=== PATIENT | female | born 1950 | race Caucasian/White ===

== ENCOUNTER 2020-02-19 08:51 | Outpatient (CLI) | payer MEDICARE, MEDICAID, SELFPAY ==
--- NOTE | 2020-02-19 09:01 | MM_ITS ---
WS: [id number] BILATERAL DIGITAL SCREENING MAMMOGRAPHY WITH CAD CLINICAL INFORMATION: SCREENING HISTORY: Screening mammogram. No current complaints. COMPARISON: TECHNIQUE: Bilateral CC and MLO views. FINDINGS: Scattered fibroglandular densities bilaterally. No suspicious focal mass, asymmetry, calcifications, or architectural distortion. No evidence of malignancy. Stable punctate and lucent centered calcifica tions. A few stable ovoid nodules right breast with long-term stability MM/[place] [id number] IMPRESSION: BI-RADS: 2-Benign FOLLOW UP: 1 Year Follow-up Recommend return to annual screening mammography.
== END 2020-02-19 08:52 | disposition home or self-care (01) ==
LOC: RADSHAW 08:57
PROVIDERS: PCP Internal Medicine; Visit Provider Internal Medicine
DX: Z12.31 Encounter for screening mammogram for malignant neoplasm of breast (principal)
CPT/HCPCS: 77067

== ENCOUNTER 2020-12-17 13:20 | Inpatient (IN) | payer MEDICARE, MEDICAID, SELFPAY ==
[2020-12-17] VITALS (8 sets, daily range): BP systolic 83–146; BP diastolic 50–78; PULSE 70–80; RESP 16–24; TEMP 36.7–37.8; O2SAT 92–95; BMI 35.2
--- NOTE | 2020-12-17 14:42 | XR_ITS ---
WS: [id number] Portable AP upright chest, 12/17/2020 Clinical Data: sob Comparison: PA and lateral chest, 01/19/2017. Findings: There is minimal bibasilar patchy opacity in both lungs. The heart is slightly enlarged. Th e aortic arch is tortuous. No nodules, masses or effusions are seen. XR/XR chest 1V portable [id number] Impression: 1. Minimal bibasilar patchy opacity may indicate pneumonia. 2. Atherosclerosis and cardiomegaly.
--- NOTE | 2020-12-17 14:49 | W.ED.COVID ---
HPI - COVID General: Chief Complaint: COVID symptoms Stated Complaint: SOB, COVID + Time Seen by Provider: 12/17/20 14:29 Source: patient, RN notes reviewed and old records reviewed Mode of arrival: EMS Limitations: no limitations Triage information: Has fever, cough or shortness of breath. Exposure to COVID + person last 14 days History of Present Illness: HPI Narrative: Patient admitted feeling unwell for about 2 weeks now with weakness, fatigue, body aches. She denies a fever. She has had exposure to someone with Covid. She went to her primary care provider's office today and she was tested for Covid and she tested positive for COVID-19. She was pretty lethargic and had an episode of altered mental status in her primary care provider's office. She was also hypotensive with blood pressure in the 80s and 90s systolic. She was then sent here to be evaluated. complaint: known COVID positive Prior covid testing: yes, results known COVID 19 common symptoms: positive fever(s), cough, dyspnea and body aches; negative headache(s), loss of sense of smell and/or taste, throat pain, nasal congestion, nausea, vomiting, diarrhea or chest tightness COVID 19 other sytmptoms: positive requiring oxygen and confusion; negative chest pressure, chest pain, pleuritic pain, requiring more oxygen, respiratory distress, cyanosis, lethargy or new neurological complaints Onset (ago): week(s) (2) Severity: slowly worsening Pertinent comorbid conditions: obesity Treatment prior to arrival: oxygen COVID Results: Nasal/Oral Coronavirus 2019 PCR Pending 12/17/20 19:44 12/17/20 Review of Systems General: Reports: 10 or more systems reviewed and unremarkable except in HPI and below Const: Reports: fever(s) and body aches ENMT: Denies: throat pain or nasal congestion Card: Denies: chest pain Resp: Reports: dyspnea GI: Denies: nausea, vomiting or diarrhea Neuro: Reports: confusion; Denies: headache(s) PFS ED PFSH: Medical History (Updated 12/17/20 @ 22:33 by Michel Dhaliwal MD, [facility] [place] Gout HTN (hypertension) Hypothyroidism Type 2 diabetes mellitus Family History (Updated 12/17/20 @ 18:03 by Kale Jamison MD) Other CAD (coronary artery disease) Cancer Diabetes Social History (Updated 12/17/20 @ 18:03 by Kale Jamison MD) Smoking and tobacco status: never smoked Alcohol intake: former Substance/Drug Use: never Marital status: Physical Exam Const: COMMON NORMALS: no acute distress, average body habitus, patient oriented x3, no limitations, healthy appearing, alert and well nourished HENMT: COMMON NORMALS: normocephalic, atraumatic and moist oral mucous membranes HEAD & SCALP: normocephalic and atraumatic Neck/C-Spine: COMMON NORMALS: no meningeal signs and no JVD Resp: COMMON NORMALS: normal respiratory effort, No retractions, No use of accessory muscles, clear to auscultation bilaterally and percussion normal AUSCULTATION: clear to auscultation bilaterally PERCUSSION: percussion normal Cardio: COMMON NORMALS: no JVD, regular rate, regular rhythm, S1 normal heart sound present, S2 normal heart sound present, No gallops present (Cardio), No clicks present (Cardio), No murmurs present (Cardio), No rub (Cardio) and Peripheral pulses 2+ throughout RATE: regular rate RHYTHM: regular rhythm HEART SOUNDS: S1 normal heart sound present and S2 normal heart sound present PERIPHERAL PULSES: Peripheral pulses 2+ throughout GI: COMMON NORMALS: Normal to inspection, nondistended, normoactive bowel sounds present, Soft to palpation, non-tender, No hepatosplenomegaly present, no masses and no bruits PALPATION: Yes Soft to palpation and Yes No hepatosplenomegaly present Extremity: COMMON NORMALS: normal to inspection, full ROM, capillary refill normal, no calf tenderness and no pedal edema Neuro: COMMON NORMALS: patient oriented x3 SENSORIUM/ORIENTATION: Yes alert MENINGEAL SIGNS: Yes no meningeal signs Course Consultations: Consultation #1: Discussed the patient with Dr. Grewal, hospitalist and he kindly accepted the patient to his service. Time: 17:45 Vital Signs: Vital signs: Vital Signs Temperature 99.6 F 12/17/20 20:13 Pulse Rate 76 12/17/20 20:13 Respiratory Rate 24 H 12/17/20 20:13 Blood Pressure 146/60 12/17/20 20:13 Pulse Oximetry 95 12/17/20 20:13 MDM - COVID MDM Narrative: Medical decision making narrative: This is a 70-year-old female patient who presents to the emergency department with feeling unwell. She was noted to be hypoxic and hypotensive at her primary care provider's office today. She tested positive for COVID-19 in her primary care provider's office today. She was requiring oxygen at 3 L/min and was also hypotensive in the emergency department. She is admitted to the hospital for further evaluation and management. Medical Records: Attestation: I reviewed the patient's medical records. Lab Data: Attestation: I reviewed the patient's lab results. Labs: Lab Results 12/17/20 12/17/20 12/17/20 Range/Units 16:30 16:30 16:30 WBC 5.2 (4.0-10.0) 10^3/ uL RBC 4.85 (4.1-5.3) 10^6/u L Hgb 13.0 (11.5-15.3) g/dL Hct 42.7 (37.0-47.0) % MCV 88.0 (81-99) fL MCH 26.8 L (28.0-34.0) pg MCHC 30.4 (30.0-36.0) g/dL RDW 14.4 (12.1-15.1) % Plt Count 192 (130-400) 10^3/c mm MPV 10.7 H (7.4-10.4) fL Neut % (Auto) 65.1 % Lymph % (Auto) 24.5 % [place] % (Auto) 9.6 % Eos % (Auto) 0.0 % Baso % (Auto) 0.4 % Neut # (Auto) 3.41 (1.8-7.7) 10^3/u L Lymph # (Auto) 1.3 (0.8-4.8) 10^3/u L [place] # (Auto) 0.5 (0.2-0.9) 10^3/u L Eos # (Auto) 0.0 (0.0-0.8) 10^3/u L Baso # (Auto) 0.0 (0.0-0.1) 10^3/u L Nucleated RBC % (a uto) 0 % Nucleated RBCs # 0.0 /100WBC Fibrinogen 548 H (174-498) mg/dL D-Dimer 0.74 H (0-0.59) ug/mIFE U Sodium 131 L (136-145) mmol/L Potassium 4.3 (3.5-5.1) mmol/L Chloride 95 L (98-107) mmol/L Carbon Dioxide 19 L (22-29) mmol/L Anion Gap 21.3 H (5-19) BUN 26 H (8-23) mg/dL Creatinine 1.4 H (0.5-0.9) mg/dL GFR Calculation 37.4 L (90-130) mL/min Glucose 326 H (65-115) mg/dL Calculated Osmolal ity 289 (285-295) mOsm/k g Lactic Acid (0.5-2.2) mmol/L Calcium 8.3 L (8.5-10.5) mg/dL Magnesium 2.2 (1.7-2.3) mg/dL Iron (37-145) ug/dL TIBC mcg/dl % Saturation (20-50) % Unsat Iron Binding (112-347) ug/dL Total Bilirubin 0.3 (0.15-1.2) mg/dL AST 21 (0-32) U/L ALT 19 (0-33) U/L Alkaline Phosphata se 94 (35-105) IU/L Troponin T Baselin e (0-10) ng/L C-Reactive Protein 77.6 H (0.0-4.9) mg/L NT-Pro-B Natriuret Pep (0-125) pg/mL Total Protein 7.2 (6.6-8.7) g/dL Albumin 3.8 (3.5-5.2) g/dL Globulin 3.4 (1.3-4.6) g/dL Procalcitonin (0-0.5) ng/mL TSH (0.27-4.20) uIU/ mL Urine Color (Yellow) Urine Appearance (CLEAR) Urine pH (5-7) Ur Specific Gravit y (1.005-1.030) Urine Protein (Negative) Urine Glucose (UA) (Normal) Urine Ketones (Negative) Urine Blood (Negative) Urine Nitrate (Negative) Urine Bilirubin (Negative) Urine Urobilinogen (Negative) mg/dL Ur Leukocyte Cat ase (Negative) Urine RBC (0-2) /hpf Urine WBC (0-5) /hpf Ur Squamous Epith Cells (0-5) /hpf Amorphous Sediment Urine Bacteria (NONE) /hpf 12/17/20 12/17/20 12/17/20 Range/Units 16:30 16:30 16:30 WBC (4.0-10.0) 10^3/ uL RBC (4.1-5.3) 10^6/u L Hgb (11.5-15.3) g/dL Hct (37.0-47.0) % MCV (81-99) fL MCH (28.0-34.0) pg MCHC (30.0-36.0) g/dL RDW (12.1-15.1) % Plt Count (130-400) 10^3/c mm MPV (7.4-10.4) fL Neut % (Auto) % Lymph % (Auto) % [place] % (Auto) % Eos % (Auto) % Baso % (Auto) % Neut # (Auto) (1.8-7.7) 10^3/u L Lymph # (Auto) (0.8-4.8) 10^3/u L [place] # (Auto) (0.2-0.9) 10^3/u L Eos # (Auto) (0.0-0.8) 10^3/u L Baso # (Auto) (0.0-0.1) 10^3/u L Nucleated RBC % (a uto) % Nucleated RBCs # /100WBC Fibrinogen (174-498) mg/dL D-Dimer (0-0.59) ug/mIFE U Sodium (136-145) mmol/L Potassium (3.5-5.1) mmol/L Chloride (98-107) mmol/L Carbon Dioxide (22-29) mmol/L Anion Gap (5-19) BUN (8-23) mg/dL Creatinine (0.5-0.9) mg/dL GFR Calculation (90-130) mL/min Glucose (65-115) mg/dL Calculated Osmolal ity (285-295) mOsm/k g Lactic Acid 2.6 H (0.5-2.2) mmol/L Calcium (8.5-10.5) mg/dL Magnesium (1.7-2.3) mg/dL Iron 15 L (37-145) ug/dL TIBC 242 mcg/dl % Saturation 6.1 L (20-50) % Unsat Iron Binding 227 (112-347) ug/dL Total Bilirubin (0.15-1.2) mg/dL AST (0-32) U/L ALT (0-33) U/L Alkaline Phosphata se (35-105) IU/L Troponin T Baselin e (0-10) ng/L C-Reactive Protein (0.0-4.9) mg/L NT-Pro-B Natriuret Pep 124 (0-125) pg/mL Total Protein (6.6-8.7) g/dL Albumin (3.5-5.2) g/dL Globulin (1.3-4.6) g/dL Procalcitonin 0.16 (0-0.5) ng/mL TSH 2.13 (0.27-4.20) uIU/ mL Urine Color (Yellow) Urine Appearance (CLEAR) Urine pH (5-7) Ur Specific Gravit y (1.005-1.030) Urine Protein (Negative) Urine Glucose (UA) (Normal) Urine Ketones (Negative) Urine Blood (Negative) Urine Nitrate (Negative) Urine Bilirubin (Negative) Urine Urobilinogen (Negative) mg/dL Ur Leukocyte Cat ase (Negative) Urine RBC (0-2) /hpf Urine WBC (0-5) /hpf Ur Squamous Epith Cells (0-5) /hpf Amorphous Sediment Urine Bacteria (NONE) /hpf 12/17/20 12/17/20 Range/Units 16:30 17:40 WBC (4.0-10.0) 10^3/ uL RBC (4.1-5.3) 10^6/u L Hgb (11.5-15.3) g/dL Hct (37.0-47.0) % MCV (81-99) fL MCH (28.0-34.0) pg MCHC (30.0-36.0) g/dL RDW (12.1-15.1) % Plt Count (130-400) 10^3/c mm MPV (7.4-10.4) fL Neut % (Auto) % Lymph % (Auto) % [place] % (Auto) % Eos % (Auto) % Baso % (Auto) % Neut # (Auto) (1.8-7.7) 10^3/u L Lymph # (Auto) (0.8-4.8) 10^3/u L [place] # (Auto) (0.2-0.9) 10^3/u L Eos # (Auto) (0.0-0.8) 10^3/u L Baso # (Auto) (0.0-0.1) 10^3/u L Nucleated RBC % (a uto) % Nucleated RBCs # /100WBC Fibrinogen (174-498) mg/dL D-Dimer (0-0.59) ug/mIFE U Sodium (136-145) mmol/L Potassium (3.5-5.1) mmol/L Chloride (98-107) mmol/L Carbon Dioxide (22-29) mmol/L Anion Gap (5-19) BUN (8-23) mg/dL Creatinine (0.5-0.9) mg/dL GFR Calculation (90-130) mL/min Glucose (65-115) mg/dL Calculated Osmolal ity (285-295) mOsm/k g Lactic Acid (0.5-2.2) mmol/L Calcium (8.5-10.5) mg/dL Magnesium (1.7-2.3) mg/dL Iron (37-145) ug/dL TIBC mcg/dl % Saturation (20-50) % Unsat Iron Binding (112-347) ug/dL Total Bilirubin (0.15-1.2) mg/dL AST (0-32) U/L ALT (0-33) U/L Alkaline Phosphata se (35-105) IU/L Troponin T Baselin e 27 H (0-10) ng/L C-Reactive Protein (0.0-4.9) mg/L NT-Pro-B Natriuret Pep (0-125) pg/mL Total Protein (6.6-8.7) g/dL Albumin (3.5-5.2) g/dL Globulin (1.3-4.6) g/dL Procalcitonin (0-0.5) ng/mL TSH (0.27-4.20) uIU/ mL Urine Color Yellow (Yellow) Urine Appearance Sl hazy (CLEAR) Urine pH 5 (5-7) Ur Specific Gravit y 1.005 (1.005-1.030) Urine Protein Neg (Negative) Urine Glucose (UA) 4+ H (Normal) Urine Ketones Negative (Negative) Urine Blood 2+ H (Negative) Urine Nitrate Negative (Negative) Urine Bilirubin Neg (Negative) Urine Urobilinogen Norm (Negative) mg/dL Ur Leukocyte Cat ase Trace H (Negative) Urine RBC 5-10 H (0-2) /hpf Urine WBC 5-10 H (0-5) /hpf Ur Squamous Epith Cells 10-15 H (0-5) /hpf Amorphous Sediment Not Reportable Urine Bacteria 1+ H (NONE) /hpf Imaging Data: CXR: Attestation: I personally reviewed and interpreted this imaging study as follows: Radiologist's impression: [address] [id number] ReportSigned Patient: Ximena Livingston #: [id number]: 1950cct#:[id number]/Sex: 70 / FADM Date: 12/17/20Loc: ERRoom/Bed:Attending Dr: Ordering Provider/Ordering MD: Michel Dhaliwal MD, [facility] [place] of Service: 12/17/20 Procedure(s): XR chest 1V portable [id number] Accession Number(s): [id number] Report Number: [id number] WS: [id number] Portable AP upright chest, 12/17/2020 Clinical Data: sob Comparison: PA and lateral chest, 01/19/2017. Findings: There is minimal bibasilar patchy opacity in both lungs. The heart is slightly enlarged. The aortic arch is tortuous. No nodules, masses or effusions are seen. XR/XR chest 1V portable [id number] Impression: 1. Minimal bibasilar patchy opacity may indicate pneumonia. 2. Atherosclerosis and cardiomegaly. Dictated By:Yuliana Barron MDSigned By:Yuliana Barron MDSigned Date/Time:12/17/207DD/ 1455 EKG Data: EKG 1: Attestation: I personally reviewed and interpreted this EKG as follows: EKG interpretation date: 12/17/20 EKG interpretation time: 15:44 Prior EKG tracings: not available for review Interpretation: Sinus rhythm. Heart rate 77 bpm. Left anterior fascicular block. LVH. No ST changes. COVID Results: Nasal/Oral Coronavirus 2019 PCR Pending 12/17/20 19:44 12/17/20 Monoclonal Antibody - ED Inclusion/Exclusion Criteria age >/= 12 years, weight >/= 40kg /88lbs, symptom onset >10 day ago [ineligible] and + direct Sars-Cov-2 test less than 7-10 days ago obesity (BMI >25 or 85%til for age) needs hospitalization (DO NOT GIVE) and needs oxygen (DO NOT GIVE) Plan for treatment Does not meet criteria (DO NOT GIVE) and Does not meet criteria (DO NOT GIVE) Discharge Plan Discharge Patient Disposition: Admitted As Inpatient Admit Provider: Kale Jamison Clinical Impression: Pneumonia due to 2019 novel coronavirus, Hypotension, Hypoxia Condition: Stable Coding Level of Care Code ED Land Acquisition Manager for Chg Fwd Exam Detailed
[2020-12-17 16:38] LABS: Basophils % 0.4 %; Hematocrit 42.7 % (37.0-47.0); Lymphocytes # 1.3 10^3/uL (0.8-4.8); Lymphocytes % 24.5 %; Mean Corpuscular HGB Conc 30.4 g/dL (30.0-36.0); Mean Corpuscular Hemoglobin 26.8 pg (28.0-34.0); Mean Platelet Volume 10.7 fL (7.4-10.4); Monocytes # 0.5 10^3/uL (0.2-0.9); Monocytes % 9.6 %; Neutrophils # 3.41 10^3/uL (1.8-7.7); Neutrophils % 65.1 %; Nucleated Red Blood Cells % 0 %; Platelet Count 192 10^3/cmm (130-400); Red Blood Count 4.85 10^6/uL (4.1-5.3); Red Cell Distribution Width 14.4 % (12.1-15.1); White Blood Count 5.2 10^3/uL (4.0-10.0)
[2020-12-17 16:53] LABS: Fibrinogen 548 mg/dL (174-498)
[2020-12-17 16:56] LABS: D Dimer 0.74 ug/mIFEU (0-0.59)
[2020-12-17 16:57] LABS: Lactic Sepsis W/Reflex 2.6 mmol/L (0.5-2.2)
[2020-12-17 17:13] LABS: Alanine Aminotransferase 19 U/L (0-33); Albumin Level 3.8 g/dL (3.5-5.2); Alkaline Phosphatase 94 IU/L (35-105); Anion Gap 21.3 (5-19); Aspartate Amino Transferase 21 U/L (0-32); Blood Urea Nitrogen 26 mg/dL (8-23); C Reactive Protein 77.6 mg/L (0.0-4.9); Calcium 8.3 mg/dL (8.5-10.5); Carbon Dioxide 19 mmol/L (22-29); Chloride 95 mmol/L (98-107); Globulin 3.4 g/dL (1.3-4.6); Glomerular Filtration Rate 37.4 mL/min (90-130); Glucose 326 mg/dL (65-115); Magnesium 2.2 mg/dL (1.7-2.3); Osmolality Calculated 289 mOsm/kg (285-295); Potassium 4.3 mmol/L (3.5-5.1); Sodium 131 mmol/L (136-145); Total Bilirubin 0.3 mg/dL (0.15-1.2); Total Protein 7.2 g/dL (6.6-8.7)
--- NOTE | 2020-12-17 17:53 | PM.HP ---
Providers/Chief Complaint Primary Care Provider: Larisa Culp MD Chief Complaint: SOB, COVID + History of Present Illness Ximena Livingston is a 70 year old female with past medical history of hypertension, type 2 diabetes mellitus who was sent in from his PCPs office because of altered mental status. Patient had presented to the PCPs office for regular checkup and for COVID-19 screening. While she was waiting at PCPs office she had an episode of confusion at that time she was found to be hypotensive so presented to the ER. Patient tested positive for COVID-19 at PCPs office though no results present in the chart. In the ER initial blood pressure was 70 systolic which improved after 1 L bolus. Eventually patient had hypotension again at that time hospital service was called for further evaluation. Examination patient's blood pressure is 100 systolic requiring 3 L to maintain saturation over 90%. Patient looking tired. Review of Systems General: Reports: 10 or more systems reviewed and unremarkable except in HPI and below Const: Denies: fever(s), chills, body aches, change in appetite, change in weight, malaise, night sweats, diaphoresis, change in sleep pattern, daytime sleepiness or snoring Eyes: Denies: change in vision, blurry vision, photophobia, eye discomfort or eye discharge ENMT: Denies: throat pain, enlarged tonsils, hoarseness, mouth pain, oral sores, dry mouth, tinnitus, nasal congestion or post nasal drip Card: Denies: chest pain, palpitations, irregular heart rhythm, edema, swelling of feet/ankles, lightheadedness, syncope, pre-syncope, dyspnea on exertion, orthopnea, leg pain with exertion or acrocyanosis Resp: Denies: dyspnea, productive cough, non-productive cough, wheezing, stridor, pain on inspiration, change in phlegm color, hemoptysis or chest congestion GI: Denies: abdominal pain, nausea, vomiting, hematemesis, coffee ground emesis, dysphagia, heartburn, diarrhea, constipation, bloating, GI cramping, change in bowel habits, pain on defecation, hematochezia or melena : Denies: flank pain, dysuria, urinary frequency, urinary urgency, urinary hesitancy, nocturia or hematuria Musc: Denies: neck pain, back pain, extremity pain, joint pain, joint swelling, joint redness, joint stiffness or limited range of motion Neuro: Denies: headache(s), numbness in extremities, weakness in extremities, sensory changes, lack of coordination, difficulty walking, frequent falls, dizziness, vertigo, confusion, Slurred speech present, difficulty communicating thoughts or seizure-like activity Psych: Denies: anxiety, depression, mood swings, panic attacks, hopelessness or irritability Endo: Denies: polyuria, polydipsia, tired all the time, cold intolerance, excessive sweating, flushing or heat intolerance Dennis/Lymph: Denies: easy bruising or easy bleeding All/Imm: Denies: tongue swelling, facial swelling or acute wheezing Medications/Allergies Home Medications Medication Instructions Recorded Confirmed Last Taken Type aspirin 81 mg PO DAILY 12/17/20 12/17/20 12/17/20 History atorvastatin 20 mg PO DAILY 12/17/20 12/17/20 12/16/20 History citalopram 20 mg PO DAILY 12/17/20 12/17/20 12/16/20 History diclofenac sodium 1 g TOPICAL QID PRN 12/17/20 12/17/20 Unknown History empagliflozin [Jardiance] 25 mg PO DAILY 12/17/20 12/17/20 12/17/20 History exenatide microspheres [Bydureon 2 mg SUBCUT Q7D 12/17/20 12/17/20 12/09/20 History BCise] furosemide 40 mg PO DAILY 12/17/20 12/17/20 12/17/20 History gabapentin 600 mg PO TID 12/17/20 12/17/20 12/17/20 History glimepiride 4 mg PO BID 12/17/20 12/17/20 12/17/20 History levothyroxine 50 mcg PO DAILY 12/17/20 12/17/20 12/17/20 History lisinopril 20 mg PO DAILY 12/17/20 12/17/20 12/16/20 History metformin 1,000 mg PO BID 12/17/20 12/17/20 12/17/20 History penicillin V potassium 500 mg PO BID MDD SEE PHARMACY 12/17/20 12/17/20 12/17/20 History COMMENT Allergies Allergy/AdvReac Type Severity Reaction Status Date / Time No Known Allergies Allergy Unverified 12/17/20 16:13 PFSH Acute PFSH: Medical History (Updated 12/17/20 @ 22:33 by Michel Dhaliwal MD, [facility] [place]) Gout HTN (hypertension) Hypothyroidism Type 2 diabetes mellitus Family History (Updated 12/17/20 @ 18:03 by Kale Jamison MD) Other CAD (coronary artery disease) Cancer Diabetes Social History (Updated 12/17/20 @ 18:03 by Kale Jamison MD) Smoking and tobacco status: never smoked Alcohol intake: former Substance/Drug Use: never Marital status: Vitals/I&O/Wt Last Vital Signs Temp 100.1 F H 12/17/20 14:02 Pulse 74 12/17/20 16:07 Resp 16 12/17/20 16:07 BP 110/57 12/17/20 16:07 Pulse Ox 94 12/17/20 16:07 Weight last 48 hrs Weight 105.233 kg Physical Exam Narrative: EXAM NARRATIVE: General: No acute distress, AO x3 HEENT: PERRLA, pupils bilaterally equal and reactive Chest: Normal vesicular breath sounds, no added sounds, equal good air entry bilaterally CVS: S1-S2 regular, no murmurs, no tachycardia, no gallops, no rubs Abdomen: Soft, nontender, no organomegaly, bowel sounds present Neuro: No focal deficits, no facial deformity, AO x3, power 5/5 in all limbs Data : 12/18/20 01:01 12/18/20 01:01 A&P Assessment and plan (1) Hypoxia: Status: Acute (2) COVID-19: Status: Acute (3) Hypotension: Status: Acute (4) HONG (acute kidney injury): Status: Acute (5) Hypothyroidism: Status: Acute (6) Type 2 diabetes mellitus: Status: Acute (7) HTN (hypertension): Status: Acute Additional A&P Information Hypoxia secondary to COVID-19 pneumonia: Known positive as tested positive at PCP office. No result in chart. Check COVID antigen and PCR. Mild to moderate disease. Oxygen supplementation keeping saturation over 88%. Dexamethasone 6 mg daily. Remdesivir to finish a 5-day course. Vitamin C, zinc. Advair, Spiriva. Pulmonary toilet with incentive spirometry flutter valve. We will monitor inflammatory markers including ferritin, ESR, CRP, D-dimer, fibrinogen. If getting elevated will dose Actemra. Patient was made aware of the same and he has given verbal consent. D-dimer elevated. Will check CT as per creat in AM tomorrow. Lovenox at prophylasix galarza for now. Monitor Dimer daily. Will monitor for anemia or blood loss. Check sputum culture, procalcitonin, urine Legionella, bacterial antigen, blood culture. Procalcitonin negative. Low suspicion of bacterial infection for now. For now hold off on antibiotics. Given hypoxia will try to keep patient as negative as possible. Patient clinically dehydrated for now. Bolus NS 500 cc. After that NS @ 75 cc/hr Strict input output charting, daily weights. Hypotension: Most likely from dehydration due to COVID along with anti-hypertensives at home Goal BP less than 140/90 mmhg with mean over 65. Fluid as above. HONG: Likely as above. Fluid as above. Med rec done for nephrotoxic drugs. Stop lasix and lisinopril. Monitor BMP daily. Type 2 DM: Check HBA1c. ISS at mild dose. FC Lovenox 40 mg SQ Carb consistent diet. Famotidine for PUD PPx Attestations Medical Necessity Statement*: For more than 2 MN for hypoxia, hypotension and HONG due to covid 19 Time Spent in Patient Care: Greater than 35 minutes (>than 50% of time spent in counselling and/or direct pt care on unit). Coding Level of Care Code Acute Temper [employer] Roller for Zbigniew Gannon Diagnoses Hypoxia R09.02 COVID-19 U07.1 Hypotension I95.9 HONG (acute kidney injury) N17.9 Hypothyroidism E03.9 Type 2 diabetes mellitus E11.9 HTN (hypertension) I10
--- NOTE | 2020-12-17 18:03 | ECG_ITS ---
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 Measurements Intervals [place] Rate: 77 P: 59 CA: 154 QRS: -52 QRSD: 106 T: 72 QT: 354 QTc: 403 Interpretive Statements SINUS RHYTHM LEFT ANTERIOR FASCICULAR BLOCK [QRS AXIS <= -45, QR IN I, RS IN II] LEFT VENTRICULAR HYPERTROPHY AND ST-T CHANGE [VOLTAGE CRITERIA PLUS ST/T ABNORMALITY] POSSIBLE ANTERIOR MYOCARDIAL INFARCTION [30 ms Q WAVE IN V3/V4, OR R < 0.2 mV IN V4], OF INDETERMINATE AGE No previous ECG available for comparison Electronically Signed On 12-18-2020 7:36:41 CDT by Nadine Urbina M.D. [id number] f
[2020-12-17 18:10] LABS: Specific Gravity, Urine 1.005 (1.005-1.030); Urine Appearance SL Hazy (CLEAR); Urine Color Yellow (Yellow); pH Urine 5 (5-7)
[2020-12-17 18:11] LABS: Bilirubin Urine Neg (Negative); Blood Urine 2+ (Negative); Glucose Urine UA 4+ (Normal); Ketones Urine Negative (Negative); Leukocyte Esterase Urine Trace (Negative); Nitrate Urine Negative (Negative); Protein Urine Neg (Negative); Urobilinogen Urine Norm (Negative)
[2020-12-17 18:22] LABS: Reflex Lactate Order REFLEX LACTIC ORDERD
--- NOTE | 2020-12-17 18:36 | PC.NURSE ---
attempted report to floor states they will call back.
[2020-12-17 18:46] LABS: Add Urine Culture? No; Bacteria Urine 1+ /hpf
[2020-12-17 18:49] LABS: Troponin(5th) Baseline 27 ng/L (0-10)
[2020-12-17 18:58] LABS: Thyroid Stimulating Hormone 2.13 uIU/mL (0.27-4.20)
[2020-12-17 18:59] LABS: NT Pro B Type Natriuretic Pept 124 pg/mL (0-125); Procalcitonin 0.16 ng/mL (0-0.5)
[2020-12-17 19:10] LABS: Iron 15 ug/dL (37-145); Percent Saturation 6.1 % (20-50); Total Iron Binding Capacity 242 mcg/dl; Unsaturated Iron Binding 227 ug/dL (112-347)
[2020-12-17 19:35] LABS: Troponin 5 2HR 28.66 ng/L (0-10); Troponin 5 2HR Delta 1.66 ABS# (0-10)
[2020-12-17] MEDS: sodium chloride 0.9% 1,000 ML 999 ML IV (19:46)
[2020-12-17] MEDS: dexamethasone 10 mg/mL INJ 6 MG IVP (19:46)
--- NOTE | 2020-12-17 20:03 | ECG_ITS ---
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 Measurements Intervals [place] Rate: 77 P: 51 ME: 163 QRS: -52 QRSD: 108 T: 79 QT: 362 QTc: 411 Interpretive Statements SINUS RHYTHM WITH SINUS ARRHYTHMIA PATTERN CONSISTENT WITH PULMONARY DISEASE INCOMPLETE RIGHT BUNDLE BRANCH BLOCK [90+ ms QRS DURATION, TERMINAL R IN V1/V2, 40+ ms S IN I/aVL/V4/V5/V6] LEFT ANTERIOR FASCICULAR BLOCK [QRS AXIS <= -45, QR IN I, RS IN II] LEFT VENTRICULAR HYPERTROPHY AND ST-T CHANGE [VOLTAGE CRITERIA PLUS ST/T ABNORMALITY] Compared to ECG 12/17/2020 15:32:47 Incomplete right bundle-branch block now present Myocardial infarct finding no longer present ST (T wave) deviation still present Electronically Signed On 12-18-2020 10:00:23 CDT by Nadine Urbina M.D. [id number]
[2020-12-17 20:25] LABS: Creatine Phosphokinase 144 U/L (26-192); Lactate Dehydrogenase 281 U/L (135-214)
[2020-12-17 20:27] LABS: Glucose Point of Care 239 mg/dL (70-110)
[2020-12-17 20:46] LABS: Lactic Acid level (Lactate) 2.1 mmol/L (0.5-2.2)
[2020-12-17] MEDS: remdesivir 200 MG in sodium chloride 0.9% (100 ml) 100 ML 100 MG IV (21:34)
[2020-12-17] MEDS: sodium chloride 0.9% 1,000 ML 75 ML IV (21:35)
[2020-12-17] MEDS: benzonatate 100 mg Capsule PO (21:36)
[2020-12-17] MEDS: famotidine 20 mg/2 mL INJ IVP (21:36)
[2020-12-18] VITALS (11 sets, daily range): BP systolic 115–146; BP diastolic 60–77; PULSE 67–75; RESP 17–26; TEMP 36.5–36.8; O2SAT 90–93
[2020-12-18 01:24] LABS: Basophils % 0.4 %; Hematocrit 39.9 % (37.0-47.0); Hemoglobin 12.4 g/dL (11.5-15.3); Lymphocytes # 0.8 10^3/uL (0.8-4.8); Lymphocytes % 14.7 %; Mean Corpuscular HGB Conc 31.1 g/dL (30.0-36.0); Mean Corpuscular Hemoglobin 26.8 pg (28.0-34.0); Mean Corpuscular Volume 86.2 fL (81-99); Mean Platelet Volume 10.6 fL (7.4-10.4); Monocytes # 0.2 10^3/uL (0.2-0.9); Monocytes % 2.7 %; Neutrophils # 4.57 10^3/uL (1.8-7.7); Neutrophils % 81.8 %; Nucleated Red Blood Cells % 0 %; Platelet Count 228 10^3/cmm (130-400); Red Blood Count 4.63 10^6/uL (4.1-5.3); Red Cell Distribution Width 14.4 % (12.1-15.1); White Blood Count 5.6 10^3/uL (4.0-10.0)
[2020-12-18 01:30] LABS: Lactate (Lactic Acid level) 0.9 mmol/L (0.5-2.2)
[2020-12-18 01:31] LABS: Troponin 5 6HR 24.05 ng/L (0-10)
[2020-12-18 01:32] LABS: Alanine Aminotransferase 18 U/L (0-33); Albumin Level 3.7 g/dL (3.5-5.2); Alkaline Phosphatase 93 IU/L (35-105); Anion Gap 24.2 (5-19); Aspartate Amino Transferase 22 U/L (0-32); Blood Urea Nitrogen 28 mg/dL (8-23); Calcium 7.9 mg/dL (8.5-10.5); Carbon Dioxide 16 mmol/L (22-29); Chloride 97 mmol/L (98-107); Estmated Average Glucose 263; Globulin 3.3 g/dL (1.3-4.6); Glomerular Filtration Rate 44.7 mL/min (90-130); Glucose 429 mg/dL (65-115); Hemoglobin A1C 10.8 % (4.0-6.0); Magnesium 2.2 mg/dL (1.7-2.3); Osmolality Calculated 298 mOsm/kg (285-295); Phosphorus 4.5 mg/dL (2.5-4.5); Potassium 5.2 mmol/L (3.5-5.1); Sodium 132 mmol/L (136-145); Total Bilirubin 0.3 mg/dL (0.15-1.2)
[2020-12-18 01:42] LABS: Cholesterol 84 mg/dL (0-200); Creatine Phosphokinase 134 U/L (26-192); HDL Cholesterol 30 mg/dL (60-100); LDL Cholesterol Calculated 42 mg/dL (50-129); NT Pro B Type Natriuretic Pept 108 pg/mL (0-125); Triglycerides 61 mg/dL (0-150); VLDL Cholestrol Calculation 12 mg/dL (0-30)
[2020-12-18 02:12] LABS: Erythrocyte Sedimentation Rate 71 mm/hr (0-15)
[2020-12-18 03:10] LABS: Ferritin 332 ng/mL (15-150)
--- NOTE | 2020-12-18 06:00 | XR_ITS ---
WS: [id number] Portable AP upright chest, 12/18/2020 Clinical Data: covid Comparison: Portable chest, 12/17/2020 Findings: The minimal peripheral bilateral pulmonary opacities remain the same. The heart is slightly enlarged. The aortic arch shows calcification. Monitor leads on the chest wall. XR/XR chest 1V portable [id number] Impression: No change in minimal bilateral pulmonary opacities consistent with pneumonia.
[2020-12-18 06:48] LABS: Glucose Point of Care 449 mg/dL (70-110)
[2020-12-18] MEDS: zinc gluconate 50 mg Tablet PO (08:01)
[2020-12-18] MEDS: atorvastatin 40 mg Tablet 20 MG PO (08:01)
[2020-12-18] MEDS: ferrous gluconate 324 mg Tablet PO ×2 (08:01→17:05)
[2020-12-18] MEDS: gabapentin 300 mg Capsule PO ×2 (08:01→17:06)
[2020-12-18] MEDS: aspirin 81 mg Chew Tablet PO (08:01)
[2020-12-18] MEDS: benzonatate 100 mg Capsule PO ×3 (08:01→22:15)
[2020-12-18] MEDS: citalopram 20 mg Tablet PO (08:01)
[2020-12-18] MEDS: levothyroxine 50 mcg Tablet PO (08:02)
[2020-12-18] MEDS: famotidine 20 mg/2 mL INJ IVP ×2 (08:04→22:50)
[2020-12-18] MEDS: ascorbic acid 500 mg Tablet 1000 MG PO ×2 (09:43→17:05)
[2020-12-18] MEDS: insulin glargine 100 units/1 mL 10 UNIT SUBCUT ×2 (09:43→18:14)
[2020-12-18] MEDS: enoxaparin 40 mg/0.4 mL Syringe SUBCUT (09:43)
[2020-12-18] MEDS: dextrose 50% syringe 50 mL IVP (09:44)
[2020-12-18] MEDS: sodium chloride 0.9% 1,000 ML 75 ML IV (10:53)
[2020-12-18 11:36] LABS: Glucose Point of Care 505 mg/dL (70-110)
[2020-12-18 11:37] LABS: SARS Covid-2 Antigen Negative (Negative)
[2020-12-18 15:49] LABS: Coronavirus Test Green County Detected
--- NOTE | 2020-12-18 16:50 | P.PN_ITS ---
Subjective Subjective: Interval history: Documents overnight. Patient remains comfortable in bed. Looking a lot more awake today. Denies any nausea vomiting, headache. Asking when can she go home. Currently on 4 L saturating 93%. Working well with incentive spirometry and flutter valve and semiproning. Vitals/I&O/Wt Last Vital Signs Temp 98.0 F 12/18/20 16:00 Pulse 67 12/18/20 16:00 Resp 17 12/18/20 16:00 BP 115/77 12/18/20 16:00 Pulse Ox 93 12/18/20 16:00 12/18/20 12/18/20 12/18/20 06:59 14:59 22:59 Intake Total 1340 / 1340 1237.62 / 1237.62 Output Total 700 / 700 400 / 1100 Balance 1340 / 1340 537.62 / 537.62 -400 / 137.62 Weight last 48 hrs Weight 105.233 kg Weight 105.233 kg Physical Exam Narrative: EXAM NARRATIVE: General: No acute distress, AO x3 HEENT: PERRLA, pupils bilaterally equal and reactive Chest: Normal vesicular breath sounds, no added sounds, equal good air entry bilaterally CVS: S1-S2 regular, no murmurs, no tachycardia, no gallops, no rubs Abdomen: Soft, nontender, no organomegaly, bowel sounds present Neuro: No focal deficits, no facial deformity, AO x3, power 5/5 in all limbs Data : 12/18/20 01:01 12/18/20 01:01 Micro: Microbiology 12/17/20 17:40 Legionella Urinary Antigen - Final Unknown Source 12/17/20 17:40 Bacterial Antigens - Final Urine Kidney 12/17/20 18:42 Blood Culture - Preliminary Blood SPECIMEN COLLECTED 12/17/20 16:30 Blood Culture - Preliminary Blood SPECIMEN COLLECTED A&P Assessment and plan (1) Hypoxia: Status: Acute (2) COVID-19: Status: Acute (3) Hypotension: Status: Acute (4) HONG (acute kidney injury): Status: Acute (5) Hypothyroidism: Status: Acute (6) Type 2 diabetes mellitus: Status: Acute (7) HTN (hypertension): Status: Acute Additional A&P Information Hypoxia secondary to COVID-19 pneumonia: Mild to moderate disease. Oxygen supplementation keeping saturation over 88%. Dexamethasone 6 mg daily. Remdesivir to finish a 5-day course. Vitamin C, zinc. Advair, Spiriva. Pulmonary toilet with incentive spirometry flutter valve. We will monitor inflammatory markers including ferritin, ESR, CRP, D-dimer, fibrinogen. If getting elevated will dose Actemra. Patient was made aware of the same and he has given verbal consent. D-dimer elevated stable for now. Will do CT versus CTA as per creat in AM tomorrow. Lovenox at prophylaxis dose for now. Monitor D-dimer daily. Will monitor for anemia or blood loss. Procalcitonin negative, urine Legionella bacterial antigen negative. Sputum culture awaited. Blood culture preliminary negative. Low suspicion of bacterial infection for now. For now hold off on antibiotics. Given hypoxia will try to keep patient as negative as possible. Continue with normal saline at 75 hours for now. Strict input output charting, daily weights. Hypotension: Blood pressures better now. Most likely from dehydration due to COVID along with anti-hypertensives at home Goal BP less than 140/90 mmhg with mean over 65. Fluid as above. For now hold antihypertensives. HONG: Likely as above. Improving. Fluid as above. Med rec done for nephrotoxic drugs. Stop lasix and lisinopril. Monitor BMP daily. Hyperkalemia: Medical reconciliation done. D50 50 cc along with 12 units of IV insulin. Repeat BMP in evening. Type 2 DM: HbA1c 10.8. Blood sugars extremely elevated. Start patient on Lantus 10 units twice daily, insulin sliding scale at high-dose protocol. Anion gap normal. FC Lovenox 40 mg SQ Carb consistent diet. Famotidine for PUD PPx Attestations Medical Necessity Statement*: Patient course further hospitalization for management of hypoxia secondary to COVID-19 pneumonia, acute kidney injury Time Spent in Patient Care: Greater than 35 minutes (>than 50% of time spent in counselling and/or direct pt care on unit) . Coding Level of Care Code Acute Rubber Insulator for Zbigniew Gannon Diagnoses Hypoxia R09.02 COVID-19 U07.1 Hypotension I95.9 HONG (acute kidney injury) N17.9 Hypothyroidism E03.9 Type 2 diabetes mellitus E11.9 HTN (hypertension) I10
[2020-12-18 17:06] LABS: Glucose Point of Care 343 mg/dL (70-110)
[2020-12-18] MEDS: remdesivir 100 MG in sodium chloride 0.9% (100 ml) 100 ML IV (17:09)
[2020-12-18 17:44] LABS: Glucose Point of Care 332 mg/dL (70-110)
--- NOTE | 2020-12-18 17:56 | USCV_ITS ---
Ximena Livingston Age: 70 Gender: F : 1950 Exam Date: 12/18/2020 06:28 Ordering Phys: Kale Jamison MD Technologist: LORENA Exam Location: [facility] – [place] Indication: covid BP: 146 / 64 HR: 65 Rhythm: Sinus Technical Quality: Suboptimal MEASUREMENTS (Male / Female) Normal Values 2D ECHO LV Diastolic Diameter PLAX 3.1 cm 4.2 - 5.9 / 3.9 - 5.3 cm LV Systolic Diameter PLAX 2.1 cm IVS Diastolic Thickness 1.2 cm 0.6 - 1.0 / 0.6 - 0.9 cm IVS Systolic Thickness 1.7 cm LVPW Diastolic Thickness 1.6 cm 0.6 - 1.0 / 0.6 - 0.9 cm LVPW Systolic Thickness 1.7 cm LVOT Diameter 2.0 cm LV Ejection Fraction 2D Teich 63.0 % LV Ejection Fraction MOD 2C 64.1 % LV Ejection Fraction 2C AL 65.7 % LA Diameter 3.7 cm LA Width 2.7 cm LA Height 4.0 cm RA Width 3.3 cm RA Height 4.3 cm Aorta at Sinotubular Diameter 2.4 cm M-MODE Aortic Annulus Diameter 2.9 cm LA Ao Ratio MM 1.2 MV E Point Septal Separation 0.4 cm DOPPLER AV Peak Velocity 156.0 cm/s LVOT Peak Velocity 76.0 cm/s AV Area Cont Eq vti 1.9 cm squared AV Area Cont Eq pk 1.6 cm squared MV Area PHT 3.0 cm squared Mitral E to A Ratio 0.8 MV E' Velocity 80.0 cm/s Mitral E to LV E' Septal Ratio 10.4 TR Peak Velocity 113.9 cm/s TR Peak Gradient 5.2 mmHg TR Mean Velocity 85.8 cm/s TR Mean Gradient 3.1 mmHg TR Velocity Time Integral 24.3 cm Right Atrial Pressure 3.0 mmHg Pulmonary Artery Systolic Pressu 8.2 mmHg PV Peak Velocity 137.0 cm/s RV Acceleration Time 0.1 s RV Ejection Time 0.3 s RV AcT/ET 0.2 FINDINGS Left Ventricle Normal left ventricular cavity size. Normal left ventricular systolic function. No regional wall motion abnormalities. Left ventricular ejection fraction is estimated at 60 %. Grade I/IV diastolic dysfunction (abnormal relaxation filling pattern), normal to mildly elevated filling pressures. Right Ventricle The right ventricle is normal in size and function. Right Atrium The right atrium is normal in size. Left Atrium The left atrium is normal in size. Mitral Valve Structurally normal mitral valve without significant stenosis or prolapse. There is no mitral regurgitation. Aortic Valve Moderate aortic valve calcification. Moderate aortic valve stenosis, mean gradient 4.8 mmHg, INC 1.9 cm squared. No aortic valve regurgitation. Tricuspid Valve Structurally normal tricuspid valve without significant stenosis or regurgitation. Pulmonary artery systolic pressure is normal. Pulmonic Valve Structurally normal pulmonic valve without significant stenosis. There is no pulmonic regurgitation. Pericardium Normal pericardium without effusion. Aorta Normal ascending aorta dimension. CONCLUSIONS 1-Normal left ventricular cavity size. Normal left ventricular systolic function. No regional wall motion abnormalities. Left ventricular ejection fraction is estimated at 60 %. Grade I/IV diastolic dysfunction (abnormal relaxation filling pattern), normal to mildly elevated filling pressures. 2-Moderate aortic valve calcification. Moderate aortic valve stenosis, mean gradient 4.8 mmHg, NIC 1.9 cm squared. No aortic valve regurgitation. 3-There is no pericardial effusion. 4-Pulmonary artery systolic pressure is within normal limits. 5-Right atrial pressure is around 5 mm of mercury. 6-When compared to prior echocardiogram dated 28 Sep 2016 there is moderate aortic valvular stenosis now. Steph Mohamud MD (Electronically Signed) Final Date: 18 December 2020 19:06 S
[2020-12-18 18:51] LABS: Anion Gap 17.2 (5-19); Blood Urea Nitrogen 37 mg/dL (8-23); Calcium 7.9 mg/dL (8.5-10.5); Carbon Dioxide 18 mmol/L (22-29); Chloride 102 mmol/L (98-107); Glomerular Filtration Rate 49.4 mL/min (90-130); Glucose 308 mg/dL (65-115); Osmolality Calculated 296 mOsm/kg (285-295); Potassium 4.2 mmol/L (3.5-5.1); Sodium 133 mmol/L (136-145)
[2020-12-18 21:25] LABS: Glucose Point of Care 241 mg/dL (70-110)
[2020-12-18] MEDS: dexamethasone 4 mg/mL INJ 6 MG IVP (22:50)
[2020-12-19] VITALS (59 sets, daily range): BP systolic 118–170; BP diastolic 52–73; PULSE 63–73; RESP 17–26; TEMP 36.4–36.8; O2SAT 85–97
--- NOTE | 2020-12-19 01:23 | PC.NURSE ---
IV ACCESS DMITRY IV INFILTRATED IN RIGHT HAND WHICH THIS NURSE REMOVED. UPON TELLING DMITRY THAT NEW IV NEEDED PLACED TO HANG IV FLUIDS. PATIENT STATED TO THIS NURSE NO ONE WILL BE TRYING TO STICK HER ANY MORE TONIGHT AND THAT MAYBE SHE WOULD LET A NURSE TRY SOMETIME TOMORROW.
--- NOTE | 2020-12-19 02:53 | PC.NURSE ---
Telemetry Unable to chart 2200 cardiac monitoring due to patient will not leave on the leads. This nurse and other staff on this floor have tried to put leads back on and educate the patient on the importance of leave the telemetry on.
[2020-12-19 06:34] LABS: Basophils % 0.3 %; Hematocrit 40.4 % (37.0-47.0); Hemoglobin 12.2 g/dL (11.5-15.3); Lymphocytes # 1.5 10^3/uL (0.8-4.8); Lymphocytes % 20.9 %; Mean Corpuscular HGB Conc 30.2 g/dL (30.0-36.0); Mean Corpuscular Hemoglobin 26.6 pg (28.0-34.0); Mean Corpuscular Volume 88.2 fL (81-99); Mean Platelet Volume 10.8 fL (7.4-10.4); Monocytes # 0.6 10^3/uL (0.2-0.9); Monocytes % 8.4 %; Neutrophils # 5.15 10^3/uL (1.8-7.7); Neutrophils % 69.7 %; Nucleated Red Blood Cells % 0 %; Platelet Count 264 10^3/cmm (130-400); Red Blood Count 4.58 10^6/uL (4.1-5.3); Red Cell Distribution Width 14.6 % (12.1-15.1); White Blood Count 7.4 10^3/uL (4.0-10.0)
[2020-12-19 06:39] LABS: Glucose Point of Care 234 mg/dL (70-110)
--- NOTE | 2020-12-19 06:46 | PC.NURSE ---
Shift Note Frequent safety and comfort rounds continue. Orders and/or nursing care completed as indicated. Patient monitored for response to intervention and treatment(s). Education provided includes leaving on telemetry and oxygen. Patient and/or merchandising representative needed reminded frequently during this shift to leave telemetry and oxygen on. Will continue to monitor.
[2020-12-19 07:09] LABS: Alanine Aminotransferase 15 U/L (0-33); Albumin Level 3.7 g/dL (3.5-5.2); Alkaline Phosphatase 87 IU/L (35-105); Anion Gap 20.1 (5-19); Aspartate Amino Transferase 19 U/L (0-32); Blood Urea Nitrogen 34 mg/dL (8-23); Calcium 7.9 mg/dL (8.5-10.5); Carbon Dioxide 19 mmol/L (22-29); Chloride 102 mmol/L (98-107); Globulin 2.5 g/dL (1.3-4.6); Glomerular Filtration Rate 62.3 mL/min (90-130); Glucose 204 mg/dL (65-115); Osmolality Calculated 295 mOsm/kg (285-295); Potassium 5.1 mmol/L (3.5-5.1); Sodium 136 mmol/L (136-145); Total Bilirubin 0.2 mg/dL (0.15-1.2); Total Protein 6.2 g/dL (6.6-8.7)
[2020-12-19 07:13] LABS: C Reactive Protein 55.8 mg/L (0.0-4.9); Creatine Phosphokinase 104 U/L (26-192); Ferritin 411 ng/mL (15-150); NT Pro B Type Natriuretic Pept 193 pg/mL (0-125)
[2020-12-19] MEDS: enoxaparin 40 mg/0.4 mL Syringe SUBCUT (08:27)
[2020-12-19] MEDS: ferrous gluconate 324 mg Tablet PO ×2 (08:31→18:53)
[2020-12-19] MEDS: benzonatate 100 mg Capsule PO ×3 (08:31→21:01)
[2020-12-19] MEDS: gabapentin 300 mg Capsule PO ×2 (08:31→18:53)
[2020-12-19] MEDS: zinc gluconate 50 mg Tablet PO (08:32)
[2020-12-19] MEDS: aspirin 81 mg Chew Tablet PO (08:32)
[2020-12-19] MEDS: ascorbic acid 500 mg Tablet 1000 MG PO ×2 (08:32→18:53)
[2020-12-19] MEDS: atorvastatin 40 mg Tablet 20 MG PO (08:33)
[2020-12-19] MEDS: citalopram 20 mg Tablet PO (08:33)
[2020-12-19] MEDS: insulin glargine 100 units/1 mL 10 UNIT SUBCUT (08:37)
[2020-12-19] MEDS: levothyroxine 50 mcg Tablet PO (08:38)
--- NOTE | 2020-12-19 09:02 | PC.NURSE ---
Pt refused IV insertion
[2020-12-19 11:15] LABS: Glucose Point of Care 280 mg/dL (70-110)
--- NOTE | 2020-12-19 15:22 | P.PN_ITS ---
Subjective Subjective: Interval history: Today morning on examination patient was seen standing up in the room getting ready to leave. She was on room air. Patient stated that she is feeling scared and does not want to remain in the hospital any further. She is AO x3. On further counseling we discussed that as patient is still requiring some oxygen it is recommended for her to finish at least 3-day course of remdesivir. On ambulation patient was saturating 88% while resting she was saturating 91% on room air. At first patient was adamant on going but after talking to her son she agreed to stay for one more day to get a course of IV remdesivir. She denies any nausea vomiting, headache. Vitals/I&O/Wt Last Vital Signs Temp 98.3 F 12/19/20 12:00 Pulse 65 12/19/20 12:00 Resp 17 12/19/20 12:00 BP 127/63 12/19/20 12:00 Pulse Ox 95 12/19/20 12:00 12/19/20 12/19/20 12/19/20 06:59 14:59 22:59 Intake Total 946.25 / 2283.87 120 / 120 Output Total 450 / 1550 900 / 900 Balance 496.25 / 733.87 -780 / -780 Weight last 48 hrs Weight 105.233 kg Weight 105.233 kg Physical Exam Narrative: EXAM NARRATIVE: General: No acute distress, AO x3 HEENT: PERRLA, pupils bilaterally equal and reactive Chest: Normal vesicular breath sounds, no added sounds, equal good air entry bilaterally CVS: S1-S2 regular, no murmurs, no tachycardia, no gallops, no rubs Abdomen: Soft, nontender, no organomegaly, bowel sounds present Neuro: No focal deficits, no facial deformity, AO x3, power 5/5 in all limbs Data : 12/19/20 05:33 12/19/20 05:33 Micro: Microbiology 12/17/20 18:42 Blood Culture - Preliminary Blood NEGATIVE TO DATE 12/17/20 16:30 Blood Culture - Preliminary Blood NEGATIVE TO DATE 12/17/20 17:40 Legionella Urinary Antigen - Final Unknown Source A&P Assessment and plan (1) Hypoxia: Status: Acute (2) COVID-19: Status: Acute (3) Hypotension: Status: Acute (4) HONG (acute kidney injury): Status: Acute (5) Hypothyroidism: Status: Acute (6) Type 2 diabetes mellitus: Status: Acute (7) HTN (hypertension): Status: Acute Additional A&P Information Hypoxia secondary to COVID-19 pneumonia: Mild disease. Oxygen supplementation keeping saturation over 88%. Dexamethasone 6 mg daily. Remdesivir to finish a 5-day course. If patient continues to remain stable on minimal oxygen supplementation can shorten the course to 3 days. Vitamin C, zinc. Advair, Spiriva. Pulmonary toilet with incentive spirometry flutter valve. We will monitor inflammatory markers including ferritin, ESR, CRP, D-dimer, fibrinogen. CRP 58>>75, D-dimer 0.9>> 0.7. If getting elevated will dose Actemra. Patient was made aware of the same and he has given verbal consent. D-dimer elevated stable for now. Continue with Lovenox at prophylaxis dose for now. Monitor D-dimer daily. Will monitor for anemia or blood loss. Procalcitonin negative, urine Legionella bacterial antigen negative. Sputum culture awaited. Blood culture preliminary negative. Low suspicion of bacterial infection for now. For now hold off on antibiotics. Given hypoxia will try to keep patient as negative as possible. Stop IV fluids patient is euvolemic. Strict input output charting, daily weights. Hypotension: Resolved. Blood pressures better now. Most likely from dehydration due to COVID along with anti-hypertensives at home Hypertension: Goal BP less than 140/90 mmhg with mean over 65. Continue to hold antihypertensives for now. HONG: Resolved. Likely secondary dehydration. Med rec done for nephrotoxic drugs. Stop lasix and lisinopril. Monitor BMP daily. Type 2 DM: HbA1c 10.8. Blood sugars extremely elevated. Insulin sliding scale at moderate dose protocol, insulin with Lantus at 15 units twice daily Anion gap normal. FC Lovenox 40 mg SQ Carb consistent diet. Famotidine for PUD PPx Discharge planning: We will plan to discharge tomorrow after finishing a course of IV remdesivir. Patient will most likely need home oxygen. Patient will need to follow-up with primary care provider within 1 week on discharge. Attestations Medical Necessity Statement*: Requires further hospitalization for management of hypoxia, hypotension secondary to COVID-19 pneumonia and dehydration Time Spent in Patient Care: Greater than 35 minutes (>than 50% of time spent in counselling and/or direct pt care on unit) . Coding Level of Care Code Acute Fire Extinguisher Charger for Chg Fwd Diagnoses Hypoxia R09.02 COVID-19 U07.1 Hypotension I95.9 HONG (acute kidney injury) N17.9 Hypothyroidism E03.9 Type 2 diabetes mellitus E11.9 HTN (hypertension) I10
[2020-12-19 17:07] LABS: Glucose Point of Care 118 mg/dL (70-110)
[2020-12-19] MEDS: insulin glargine 100 units/1 mL 15 UNIT SUBCUT (18:53)
--- NOTE | 2020-12-19 20:11 | PC.NURSE ---
Shift Note Frequent safety and comfort rounds continue. Orders and/or nursing care completed as indicated. Patient monitored for response to intervention and treatment(s). RNs attempted to insert IV x2 this shift-were unsuccessful. Called night RNs in ICU and med/surg to insert another IVs. Education provided includes importance of keeping IV for IV meds, Oxygen and telemetry. Patient needed reinforcement and/or sales representative womens health son oli verbalizes importance of the treatments. 1800 pm- Pt took a shower independently in her room. bed linens change. Will continue to monitor.
--- NOTE | 2020-12-19 21:11 | PC.NURSE ---
Patient recieved alert. On 5LPM o2 via Nasal cannula, SPO2 96%.Patient keeps taking off monitorig device. NSR on monitor. Patient was educated on the importance of monitoring devices. Patient voice that she wants to go home. Noncompliant with instructions. Patient for Remedisivir from previos shift, same was not administered as per nurse, patient galarza not have LEYLA and will need one. Multiple attempts made to site LEYLA, joe unsuccessful. ER nurse came, same unsucessful. ICU was contacted X2. Awaitng ICU with Ultrasound. Patient was informed of same.
[2020-12-19 21:31] LABS: Glucose Point of Care 164 mg/dL (70-110)
[2020-12-19] MEDS: dexamethasone 4 mg/mL INJ 6 MG IVP (21:58)
[2020-12-19] MEDS: famotidine 20 mg/2 mL INJ IVP (21:58)
[2020-12-19] MEDS: remdesivir 100 MG in sodium chloride 0.9% (100 ml) 100 ML IV (22:47)
--- NOTE | 2020-12-19 22:52 | PC.NURSE ---
LEYLA sited. Remedisivir up and infusing.
[2020-12-20] VITALS (10 sets, daily range): BP systolic 110–162; BP diastolic 52–93; PULSE 61–80; RESP 16–24; TEMP 36.3–36.8; O2SAT 89–98
--- NOTE | 2020-12-20 01:06 | PC.NURSE ---
Patient cardiac strip not able to be obtained, as patient keeps taking off leads. However leads were placed and NSR noted prior to patient taking off same. Remains stable.
--- NOTE | 2020-12-20 06:00 | XRR_ITS ---
PROCEDURE INFORMATION: Exam: XR Chest Exam date and time: 12/20/2020 6:00 AM Age: 70 years old Clinical indication: Shortness of breath; Additional info: Covid TECHNIQUE: Imaging protocol: XR of the chest. Views: 1 view. COMPARISON: CR XR chest 1V portable [id number] 12/18/2020 7:09 AM FINDINGS: Lungs: Patulous peripheral opacities within both lungs which is more conspicuous from prior study particularly at the right mid and lower lung. Pleural spaces: Unremarkable. No pleural effusion. No pneumothorax. Heart/Mediastinum: Unremarkable. No cardiomegaly. Bones/joints: Unremarkable. XR/XR chest 1V portable [id number] IMPRESSION: Patulous peripheral opacities within both lungs which is more conspicuous from prior study and suggestive of COVID Pneumonia.
[2020-12-20 06:19] LABS: D Dimer 0.63 ug/mIFEU (0-0.59)
[2020-12-20 06:32] LABS: Basophils % 0.2 %; Hematocrit 38.8 % (37.0-47.0); Lymphocytes # 0.9 10^3/uL (0.8-4.8); Lymphocytes % 16.6 %; Mean Corpuscular HGB Conc 30.9 g/dL (30.0-36.0); Mean Corpuscular Hemoglobin 26.6 pg (28.0-34.0); Mean Platelet Volume 10.8 fL (7.4-10.4); Monocytes # 0.2 10^3/uL (0.2-0.9); Monocytes % 3.9 %; Neutrophils # 4.38 10^3/uL (1.8-7.7); Neutrophils % 78.4 %; Nucleated Red Blood Cells % 0 %; Platelet Count 289 10^3/cmm (130-400); Red Blood Count 4.51 10^6/uL (4.1-5.3); Red Cell Distribution Width 14.6 % (12.1-15.1); White Blood Count 5.6 10^3/uL (4.0-10.0)
[2020-12-20 06:56] LABS: Glucose Point of Care 300 mg/dL (70-110)
[2020-12-20 06:56] LABS: Alanine Aminotransferase 14 U/L (0-33); Albumin Level 3.4 g/dL (3.5-5.2); Alkaline Phosphatase 97 IU/L (35-105); Anion Gap 19.3 (5-19); Aspartate Amino Transferase 18 U/L (0-32); Blood Urea Nitrogen 29 mg/dL (8-23); Calcium 8.1 mg/dL (8.5-10.5); Carbon Dioxide 20 mmol/L (22-29); Chloride 102 mmol/L (98-107); Globulin 3.1 g/dL (1.3-4.6); Glomerular Filtration Rate 71.3 mL/min (90-130); Glucose 291 mg/dL (65-115); Osmolality Calculated 299 mOsm/kg (285-295); Potassium 5.3 mmol/L (3.5-5.1); Sodium 136 mmol/L (136-145); Total Bilirubin 0.3 mg/dL (0.15-1.2); Total Protein 6.5 g/dL (6.6-8.7)
[2020-12-20 07:03] LABS: Creatine Phosphokinase 83 U/L (26-192); Ferritin 374 ng/mL (15-150); NT Pro B Type Natriuretic Pept 240 pg/mL (0-125)
--- NOTE | 2020-12-20 07:16 | PC.NURSE ---
Patient spent an uneventful shift last pm. Has intermittent confusion.Remains on 5LPM O2 via nasal cannula. Nil distress noted. Patient started to become compliant with keeping monitoring devices on. LEYLA remains intact in place. Patient's has call sorto in close reach. Comode at bedside. Patient remains stable. Observation continues.
[2020-12-20 08:16] LABS: Erythrocyte Sedimentation Rate 59 mm/hr (0-15)
--- NOTE | 2020-12-20 08:25 | PC.SOCIAL ---
IM discussed with patient and she verbalized understanding.
[2020-12-20] MEDS: aspirin 81 mg Chew Tablet PO (11:14)
[2020-12-20] MEDS: ascorbic acid 500 mg Tablet 1000 MG PO ×2 (11:14→19:03)
[2020-12-20] MEDS: benzonatate 100 mg Capsule PO ×2 (11:14→15:25)
[2020-12-20] MEDS: zinc gluconate 50 mg Tablet PO (11:14)
[2020-12-20] MEDS: levothyroxine 50 mcg Tablet PO (11:15)
[2020-12-20] MEDS: ferrous gluconate 324 mg Tablet PO ×2 (11:15→19:03)
[2020-12-20] MEDS: atorvastatin 40 mg Tablet 20 MG PO (11:15)
[2020-12-20] MEDS: amlodipine 10 mg Tablet PO (11:16)
[2020-12-20] MEDS: gabapentin 300 mg Capsule PO ×2 (11:16→19:03)
[2020-12-20] MEDS: enoxaparin 40 mg/0.4 mL Syringe SUBCUT (11:17)
[2020-12-20] MEDS: insulin glargine 100 units/1 mL 15 UNIT SUBCUT ×2 (11:17→19:04)
[2020-12-20] MEDS: citalopram 20 mg Tablet PO (11:17)
[2020-12-20 11:32] LABS: Glucose Point of Care 330 mg/dL (70-110)
--- NOTE | 2020-12-20 11:33 | PM.PN ---
Subjective Subjective: Interval history: No acute events overnight. On examination today patient did not have her oxygen and she was saturating 88% and when placed on 2 L saturating 94%. She recovered within 1 minute. She states she went to the bathroom around 20 minutes ago and forgot to put the oxygen back in her nose. Denies any nausea vomiting, headache. States that when she wakes up she was feeling terrible but now she is feeling a lot better. Patient is AO x3. She is alert and oriented to self, place, why she is in the hospital, PCP and her son. Has remained hemodynamically stable and afebrile Vitals/I&O/Wt Last Vital Signs Temp 97.9 F 12/20/20 08:00 Pulse 80 12/20/20 08:00 Resp 20 H 12/20/20 08:00 BP 149/89 12/20/20 08:00 Pulse Ox 90 12/20/20 08:00 12/19/20 12/20/20 12/20/20 22:59 06:59 14:59 Intake Total 120 / 240 100 / 340 60 / 60 Balance 120 / -660 100 / -560 60 / 60 Weight last 48 hrs Weight 102.058 kg Weight 105.233 kg Physical Exam Narrative: EXAM NARRATIVE: General: No acute distress, AO x3 HEENT: PERRLA, pupils bilaterally equal and reactive Chest: Normal vesicular breath sounds, no added sounds, equal good air entry bilaterally CVS: S1-S2 regular, no murmurs, no tachycardia, no gallops, no rubs Abdomen: Soft, nontender, no organomegaly, bowel sounds present Neuro: No focal deficits, no facial deformity, AO x3, power 5/5 in all limbs Data : 12/20/20 04:28 12/20/20 04:28 Micro: Microbiology 12/18/20 Unknown MRSA Culture - Final Nose A&P Assessment and plan (1) Hypoxia: Status: Acute (2) COVID-19: Status: Acute (3) Hypotension: Status: Acute (4) HONG (acute kidney injury): Status: Acute (5) Hypothyroidism: Status: Acute (6) Type 2 diabetes mellitus: Status: Acute (7) HTN (hypertension): Status: Acute Additional A&P Information Hypoxia secondary to COVID-19 pneumonia: Mild disease. Oxygen supplementation keeping saturation over 88%. Dexamethasone 6 mg daily. Remdesivir to finish a 5-day course. Vitamin C, zinc. Advair, Spiriva. Pulmonary toilet with incentive spirometry flutter valve. We will monitor inflammatory markers including ferritin, ESR, CRP, D-dimer, fibrinogen. Inflammatory markers trending down. If getting elevated will dose Actemra. Patient was made aware of the same and he has given verbal consent. D-dimer elevated stable for now. Continue with Lovenox at prophylaxis dose for now. Monitor D-dimer daily. Will monitor for anemia or blood loss. Procalcitonin negative, urine Legionella bacterial antigen negative. Sputum culture awaited. Blood culture preliminary negative. Low suspicion of bacterial infection for now. For now hold off on antibiotics. Given hypoxia will try to keep patient as negative as possible. Patient is euvolemic. Strict input output charting, daily weights. Hypotension: Resolved. Blood pressures better now. Most likely from dehydration due to COVID along with anti-hypertensives at home Hypertension: Goal BP less than 140/90 mmhg with mean over 65. Blood pressure is mildly elevated today start her on amlodipine 10 mg daily. Patient will have to hold off on lisinopril for now given her recent HONG for next 1 week. HONG: Resolved. Likely secondary dehydration. Med rec done for nephrotoxic drugs. Stop lasix and lisinopril. Monitor BMP daily. Hyperkalemia: Potassium elevated today. D50/10 units insulin. Repeat BMP in evening. Type 2 DM: HbA1c 10.8. Blood sugars extremely elevated. Insulin sliding scale at moderate dose protocol, insulin with Lantus at 15 units twice daily Anion gap normal. Patient would need to be discharged on insulin. Patient states she would want to talk to her primary care provider before starting on the same. We will discharge her on Metformin, glimepiride at the same dose and will add sitagliptin to the same. FC Lovenox 40 mg SQ Carb consistent diet. Famotidine for PUD PPx Discharge planning: We will plan to discharge tomorrow after finishing a course of IV remdesivir. Patient will most likely need home oxygen. Patient will need to follow-up with primary care provider within 1 week on discharge. Attestations Medical Necessity Statement*: Requires further hospitalization for management of mild COVID-19 pneumonia causing hypoxia while she finishes remdesivir course, resolving HONG and hypotension. Time Spent in Patient Care: Greater than 35 minutes (>than 50% of time spent in counselling and/or direct pt care on unit). Coding Level of Care Code Acute Registered Occupational Therapist for Chg Fwd Diagnoses Hypoxia R09.02 COVID-19 U07.1 Hypotension I95.9 HONG (acute kidney injury) N17.9 Hypothyroidism E03.9 Type 2 diabetes mellitus E11.9 HTN (hypertension) I10
[2020-12-20] MEDS: famotidine 20 mg/2 mL INJ IVP ×2 (13:27→22:51)
[2020-12-20] MEDS: dextrose 50% syringe 50 mL IVP (13:36)
[2020-12-20] MEDS: insulin regular-human 10 UNIT in SYRINGE 1 EACH IVP (13:36)
[2020-12-20 17:41] LABS: Glucose Point of Care 249 mg/dL (70-110)
[2020-12-20] MEDS: remdesivir 100 MG in sodium chloride 0.9% (100 ml) 100 ML IV (19:04)
[2020-12-20 21:44] LABS: Glucose Point of Care 195 mg/dL (70-110)
[2020-12-20] MEDS: dexamethasone 4 mg/mL INJ 6 MG IVP (22:53)
[2020-12-21] VITALS (7 sets, daily range): BP systolic 123–161; BP diastolic 63–84; PULSE 71–82; RESP 18–20; TEMP 36.8–37.1; O2SAT 85–91
[2020-12-21 06:30] LABS: Basophils % 0.3 %; Hematocrit 39.5 % (37.0-47.0); Hemoglobin 12.4 g/dL (11.5-15.3); Lymphocytes # 0.8 10^3/uL (0.8-4.8); Lymphocytes % 20.6 %; Mean Corpuscular HGB Conc 31.4 g/dL (30.0-36.0); Mean Corpuscular Hemoglobin 26.5 pg (28.0-34.0); Mean Corpuscular Volume 84.4 fl (81-99); Mean Platelet Volume 10.6 fL (7.4-10.4); Monocytes # 0.2 10^3/uL (0.2-0.9); Monocytes % 5.6 %; Neutrophils # 2.74 10^3/uL (1.8-7.7); Neutrophils % 72.4 %; Nucleated Red Blood Cells % 0 %; Platelet Count 321 10^3/cmm (130-400); Red Blood Count 4.68 10^6/uL (4.1-5.3); Red Cell Distribution Width 14.6 % (12.1-15.1); White Blood Count 3.8 10^3/uL (4.0-10.0)
[2020-12-21 06:46] LABS: Glucose Point of Care 319 mg/dL (70-110)
[2020-12-21 07:16] LABS: Alanine Aminotransferase 12 U/L (0-33); Albumin Level 3.5 g/dL (3.5-5.2); Alkaline Phosphatase 96 IU/L (35-105); Aspartate Amino Transferase 14 U/L (0-32); Blood Urea Nitrogen 30 mg/dL (8-23); Calcium 8.6 mg/dL (8.5-10.5); Carbon Dioxide 19 mmol/L (22-29); Chloride 103 mmol/L (98-107); Creatinine Clr Calc Pharmacy 82.6846; Globulin 3.1 g/dL (1.3-4.6); Glomerular Filtration Rate 71.3 mL/min (90-130); Glucose 289 mg/dL (65-115); Osmolality Calculated 297 mOsm/kg (285-295); Sodium 135 mmol/L (136-145); Total Bilirubin 0.4 mg/dL (0.15-1.2); Total Protein 6.6 g/dL (6.6-8.7)
[2020-12-21 08:02] LABS: Slide Review Slide Review Perform
[2020-12-21] MEDS: aspirin 81 mg Chew Tablet PO (09:23)
[2020-12-21] MEDS: zinc gluconate 50 mg Tablet PO (09:23)
[2020-12-21] MEDS: levothyroxine 50 mcg Tablet PO (09:23)
[2020-12-21] MEDS: ascorbic acid 500 mg Tablet 1000 MG PO (09:23)
[2020-12-21] MEDS: atorvastatin 40 mg Tablet 20 MG PO (09:24)
[2020-12-21] MEDS: ferrous gluconate 324 mg Tablet PO (09:28)
[2020-12-21] MEDS: gabapentin 300 mg Capsule PO (09:28)
[2020-12-21] MEDS: citalopram 20 mg Tablet PO (09:28)
[2020-12-21] MEDS: amlodipine 10 mg Tablet PO (09:28)
[2020-12-21] MEDS: benzonatate 100 mg Capsule PO ×2 (09:28→15:53)
[2020-12-21] MEDS: enoxaparin 40 mg/0.4 mL Syringe SUBCUT (09:29)
[2020-12-21] MEDS: insulin glargine 100 units/1 mL 15 UNIT SUBCUT (09:30)
[2020-12-21] MEDS: famotidine 20 mg/2 mL INJ IVP (09:54)
--- NOTE | 2020-12-21 12:11 | PM.DCS ---
Discharge Providers Date of Admission: 12/17/20 18:19 Date of Discharge: December 21, 2020 Attending Provider at Admission: Kale Jamison MD Attending Provider at Discharge: Kale Jamison MD Primary Care Provider: Larisa Culp MD Diagnoses at Discharge Discharge Diagnosis (1) Hypoxia: Status: Acute (2) COVID-19: Status: Acute (3) Hypotension: Status: Acute (4) HONG (acute kidney injury): Status: Acute (5) Hypothyroidism: Status: Acute (6) Type 2 diabetes mellitus: Status: Acute (7) HTN (hypertension): Status: Acute Reason for Visit Reason for Visit: SOB, COVID + Hospital Course Hospital Course Ximena Livingston is a 70 year old female with past medical history of hypertension, type 2 diabetes mellitus who was sent in from his PCPs office because of altered mental status. Patient had presented to the PCPs office for regular checkup and for COVID-19 screening. While she was waiting at PCPs office she had an episode of confusion at that time she was found to be hypotensive so presented to the ER. Patient tested positive for COVID-19 at PCPs office though no results present in the chart. In the ER initial blood pressure was 70 systolic which improved after 1 L bolus. Eventually patient had hypotension again at that time hospital service was called for further evaluation. Examination patient's blood pressure is 100 systolic requiring 3 L to maintain saturation over 90%. Patient looking tired. Patient went to the hospital for further management of hypotension secondary to dehydration and mild hypoxia from COVID-19 pneumonia. She was started on treatment with IV dexamethasone, remdesivir inhalation treatment. Her antihypertensives were withheld and she started on IV hydration. She responded well to the treatment and her blood pressures have been stable. Lisinopril and Lasix have been withheld for now given dehydration and HONG on admission. She has been discharged on oral amlodipine. Her blood work on admission also showed A1c of 10.8. Patient is currently on 3 oral hypoglycemics. She was advised for increase in her antidiabetic medication or to be started on insulin she wanted to discuss about the same with her primary care provider before any changes were made. Home O2 evaluation has been done prior to discharge. She is been discharged in hemodynamically stable condition. Advised to take inhalation treatment with Advair and Spiriva daily. Advised to continue using Eliquis which is a blood thinner for next 2 weeks. Advised to continue working with incentive spirometry and flutter valve while at home. Advised to continue taking dexamethasone 6 mg for next 7 days. Advised to follow-up with his primary care provider within next 4 to 7 days. Lisinopril and Lasix have been withheld for now. Amlodipine has been added. Please monitor your blood pressure twice daily and maintain a blood pressure diary before you follow-up with your primary care provider for further adjustments of antihypertensives. Antidiabetic medication should also be discussed with primary care provider because of elevated HbA1c. Can take his COVID-19 vaccination in 3 months. Advised to continue following social distancing and isolation protocol for next 10 days. Advised to come back to the ER if fever of more than 101 Fahrenheit, more difficulty breathing than usual or requiring higher oxygen supplementation. Safe discharge planning were discussed in detail with patient and patient's healthcare proxy son Mr. Puckett. Family is arranging a healthcare corporate account director to be with her 29/11 for now. Physical Exam Narrative: EXAM NARRATIVE: General: No acute distress, AO x3 HEENT: PERRLA, pupils bilaterally equal and reactive Chest: Normal vesicular breath sounds, no added sounds, equal good air entry bilaterally CVS: S1-S2 regular, no murmurs, no tachycardia, no gallops, no rubs Abdomen: Soft, nontender, no organomegaly, bowel sounds present Neuro: No focal deficits, no facial deformity, AO x3, power 5/5 in all limbs Discharge Data Data Completed and Pending: Completed Studies During Hospitalization Category Date Time Status XR chest 1V fabby ble [id number] Q48H Exams 12/18/20 06:00 Completed XR chest 1V fabby ble [id number] Q48H Exams 12/20/20 06:00 Completed XR chest 1V fabby ble [id number] Stat Exams 12/17/20 14:42 Completed CV. echo complete * [id number] Routine Ultrasound 12/18/20 17:56 Completed Pending at discharge Category Date Time Status XR chest 1V fabby ble [id number] Q48H Exams 12/22/20 06:00 Ordered Blood Culture Sta t Lab 12/17/20 18:42 Results Sputum Culture an d Gram Stain Stat Lab 12/17/20 17:59 Uncollected Urine Random Lyte s Stat Lab 12/18/20 09:57 Ordered Labs from last 24 hours 12/21/20 12/21/20 12/21/20 06:33 05:15 05:15 WBC 3.8 L RBC 4.68 Hgb 12.4 Hct 39.5 MCV 84.4 MCH 26.5 L MCHC 31.4 RDW 14.6 Plt Count 321 MPV 10.6 H Neut % (Auto) 72.4 Lymph % (Auto) 20.6 [place] % (Auto) 5.6 Eos % (Auto) 0.0 Baso % (Auto) 0.3 Neut # (Auto) 2.74 Lymph # (Auto) 0.8 [place]kin # (Auto) 0.2 Eos # (Auto) 0.0 Baso # (Auto) 0.0 Nucleated RBC % (a uto) 0 Nucleated RBCs # 0.0 Sodium 135 L Potassium 5.0 Chloride 103 Carbon Dioxide 19 L Anion Gap 18.0 BUN 30 H Creatinine 0.8 GFR Calculation 71.3 L Glucose 289 H POC Glucose 319 H Calculated Osmolal ity 297 H Calcium 8.6 Total Bilirubin 0.4 AST 14 ALT 12 Alkaline Phosphata se 96 Total Protein 6.6 Albumin 3.5 Globulin 3.1 12/20/20 12/20/20 21:22 16:37 WBC RBC Hgb Hct MCV MCH MCHC RDW Plt Count MPV Neut % (Auto) Lymph % (Auto) [place] % (Auto) Eos % (Auto) Baso % (Auto) Neut # (Auto) Lymph # (Auto) [place] # (Auto) Eos # (Auto) Baso # (Auto) Nucleated RBC % (a uto) Nucleated RBCs # Sodium Potassium Chloride Carbon Dioxide Anion Gap BUN Creatinine GFR Calculation Glucose POC Glucose 195 H 249 H Calculated Osmolal ity Calcium Total Bilirubin AST ALT Alkaline Phosphata se Total Protein Albumin Globulin Addt'l Data from Hospital Stay: Laboratory Results WBC 3.8 10^3/uL (4.0- 10.0) L 12/21/20 05:15 RBC 4.68 10^6/uL (4.1 -5.3) 12/21/20 05:15 Hgb 12.4 g/dL (11.5-1 5.3) 12/21/20 05:15 Hct 39.5 % (37.0-47.0 ) 12/21/20 05:15 MCV 84.4 fl (81-99) 12/21/20 05:15 MCH 26.5 pg (28.0-34. 0) L 12/21/20 05:15 MCHC 31.4 g/dL (30.0-3 6.0) 12/21/20 05:15 RDW 14.6 % (12.1-15.1 ) 12/21/20 05:15 Plt Count 321 10^3/cmm (130 -400) 12/21/20 05:15 MPV 10.6 fL (7.4-10.4 ) H 12/21/20 05:15 Neut % (Auto) 72.4 % 12/21/20 05:15 Lymph % (Auto) 20.6 % 12/21/20 05:15 [place] % (Auto) 5.6 % 12/21/20 05:15 Eos % (Auto) 0.0 % 12/21/20 05:15 Baso % (Auto) 0.3 % 12/21/20 05:15 Neut # (Auto) 2.74 10^3/uL (1.8 -7.7) 12/21/20 05:15 Lymph # (Auto) 0.8 10^3/uL (0.8- 4.8) 12/21/20 05:15 [place]kin # (Auto) 0.2 10^3/uL (0.2- 0.9) 12/21/20 05:15 Eos # (Auto) 0.0 10^3/uL (0.0- 0.8) 12/21/20 05:15 Baso # (Auto) 0.0 10^3/uL (0.0- 0.1) 12/21/20 05:15 Nucleated RBC % (a uto) 0 % 12/21/20 05:15 Nucleated RBCs # 0.0 /100WBC 12/21/20 05:15 ESR 59 mm/hr (0-15) H 12/20/20 04:28 Fibrinogen 548 mg/dL (174-49 8) H 12/17/20 16:30 D-Dimer 0.63 ug/mIFEU (0- 0.59) H 12/20/20 04:28 Sodium 135 mmol/L (136-1 45) L 12/21/20 05:15 Potassium 5.0 mmol/L (3.5-5 .1) 12/21/20 05:15 Chloride 103 mmol/L (98-10 7) 12/21/20 05:15 Carbon Dioxide 19 mmol/L (22-29) L 12/21/20 05:15 Anion Gap 18.0 (5-19) 12/21/20 05:15 BUN 30 mg/dL (8-23) H 12/21/20 05:15 Creatinine 0.8 mg/dL (0.5-0. 9) 12/21/20 05:15 GFR Calculation 71.3 mL/min (90-1 30) L 12/21/20 05:15 Glucose 289 mg/dL (65-115 ) H 12/21/20 05:15 POC Glucose 319 mg/dL (70-110 ) H 12/21/20 06:33 Estimat Average Gl ucose 263 12/18/20 01:01 Hemoglobin A1c 10.8 % (4.0-6.0) H 12/18/20 01:01 Calculated Osmolal ity 297 mOsm/kg (285- 295) H 12/21/20 05:15 Lactic Acid 2.6 mmol/L (0.5-2 .2) H 12/17/20 16:30 Lactic Acid (Sepsi s) 2.1 mmol/L (0.5-2 .2) 12/17/20 18:50 Lactate 0.9 mmol/L (0.5-2 .2) 12/18/20 01:01 Calcium 8.6 mg/dL (8.5-10 .5) 12/21/20 05:15 Phosphorus 4.5 mg/dL (2.5-4. 5) 12/18/20 01:01 Magnesium 2.2 mg/dL (1.7-2. 3) 12/18/20 01:01 Iron 15 ug/dL (37-145) L 12/17/20 16:30 TIBC 242 mcg/dl 12/17/20 16:30 % Saturation 6.1 % (20-50) L 12/17/20 16:30 Unsat Iron Binding 227 ug/dL (112-34 7) 12/17/20 16:30 Ferritin 374 ng/mL (15-150 ) H 12/20/20 04:28 Total Bilirubin 0.4 mg/dL (0.15-1 .2) 12/21/20 05:15 AST 14 U/L (0-32) 12/21/20 05:15 ALT 12 U/L (0-33) 12/21/20 05:15 Alkaline Phosphata se 96 IU/L (35-105) 12/21/20 05:15 Lactate Dehydrogen ase 281 U/L (135-214) H 12/17/20 18:50 Creatine Kinase 83 U/L (26-192) 12/20/20 04:28 Troponin T Baselin e 27 ng/L (0-10) H 12/17/20 16:30 Troponin T 120 Min eloy 28.66 ng/L (0-10) H 12/17/20 18:50 Delta Troponin T 1.66 ABS# (0-10) 12/17/20 18:50 Troponin T Hi Sens 6Hr 24.05 ng/L (0-10) H 12/18/20 01:01 Troponin T Hi Sens 6Hr Delta TNP 12/18/20 01:01 C-Reactive Protein 42.0 mg/L (0.0-4. 9) H 12/20/20 04:28 NT-Pro-B Natriuret Pep 240 pg/mL (0-125) H 12/20/20 04:28 Total Protein 6.6 g/dL (6.6-8.7 ) 12/21/20 05:15 Albumin 3.5 g/dL (3.5-5.2 ) 12/21/20 05:15 Globulin 3.1 g/dL (1.3-4.6 ) 12/21/20 05:15 Triglycerides 61 mg/dL (0-150) 12/18/20 01:01 Cholesterol 84 mg/dL (0-200) 12/18/20 01:01 LDL Cholesterol, C alc 42 mg/dL (50-129) L 12/18/20 01:01 Total VLDL Cholest anne marie 12 mg/dL (0-30) 12/18/20 01:01 HDL Cholesterol 30 mg/dL (60-100) L 12/18/20 01:01 Cholesterol/HDL Ra choco 2.80 mg/dL (0.0-4 .40) 12/18/20 01:01 Procalcitonin 0.16 ng/mL (0-0.5 ) 12/17/20 16:30 TSH 2.13 uIU/mL (0.27 -4.20) 12/17/20 16:30 Urine Color Yellow (Yellow) 12/17/20 17:40 Urine Appearance Sl hazy (CLEAR) 12/17/20 17:40 Urine pH 5 (5-7) 12/17/20 17:40 Ur Specific Gravit y 1.005 (1.005-1.0 30) 12/17/20 17:40 Urine Protein Neg (Negative) 12/17/20 17:40 Urine Glucose (UA) 4+ (Normal) H 12/17/20 17:40 Urine Ketones Negative (Negati ve) 12/17/20 17:40 Urine Blood 2+ (Negative) H 12/17/20 17:40 Urine Nitrate Negative (Negati ve) 12/17/20 17:40 Urine Bilirubin Neg (Negative) 12/17/20 17:40 Urine Urobilinogen Norm mg/dL (Negat nhi) 12/17/20 17:40 Ur Leukocyte Cat ase Trace (Negative) H 12/17/20 17:40 Urine RBC 5-10 /hpf (0-2) H 12/17/20 17:40 Urine WBC 5-10 /hpf (0-5) H 12/17/20 17:40 Ur Squamous Epith Cells 10-15 /hpf (0-5) H 12/17/20 17:40 Amorphous Sediment Not Reportable 12/17/20 17:40 Urine Bacteria 1+ /hpf (NONE) H 12/17/20 17:40 Nasal/Oral COVID-1 9 PCR Detected H 12/17/20 19:44 SARS-CoV-2 Ag (Rap id) Negative (Negati ve) 12/18/20 Unknown Impressions Chest X-Ray 12/20/20 06:00 IMPRESSION: Patulous peripheral opacities within both lungs which is more conspicuous from prior study and suggestive of COVID Pneumonia. Microbiology 12/18/20 Unknown Nose MRSA Culture - Final 12/17/20 18:42 Blood Blood Culture - Preliminary NEGATIVE TO DATE 12/17/20 16:30 Blood Blood Culture - Preliminary NEGATIVE TO DATE 12/17/20 17:40 Unknown Source Legionella Urinary Antigen - Final 12/17/20 17:40 Urine Kidney Bacterial Antigens - Final Vitals: Last Vital Signs Temp 98.7 F 12/21/20 11:16 Pulse 80 12/21/20 11:16 Resp 18 12/21/20 11:16 BP 136/74 12/21/20 11:16 Pulse Ox 90 12/21/20 11:16 Discharge Plan Discharge Patient Disposition: Home Condition: Stable Prescriptions: New amlodipine 10 mg Tablet 10 mg PO DAILY 30 Days Qty: 30 RF: 0 Vitamin C 500 mg tablet 500 mg PO DAILY 30 Days Qty: 30 RF: 0 benzonatate 100 mg Capsule 100 mg PO TID PRN (Reason: cough) 10 Days Qty: 10 RF: 0 Advair Diskus 250-50 mcg/dose Blister With Device 1 puff inhalation BID.RESPIRATORY 14 Days Qty: 28 RF: 0 ferrous gluconate 324 mg (37.5 mg iron) Tablet 324 mg PO BIDWM 30 Days Qty: 60 RF: 0 Spiriva with HandiHaler 18 mcg Capsule, W/Inhalation Device 18 mcg inhalation DAILY.RESPIRATORY 14 Days Qty: 14 RF: 0 zinc sulfate 50 mg zinc (220 mg) capsule 50 mg PO DAILY 30 Days Qty: 30 RF: 0 dexamethasone 6 mg tablet 3 mg PO DAILY Qty: 7 RF: 0 Continued atorvastatin 20 mg tablet 20 mg PO DAILY RF: 0 citalopram 20 mg tablet 20 mg PO DAILY RF: 0 levothyroxine 50 mcg tablet 50 mcg PO DAILY RF: 0 metformin 1,000 mg tablet 1,000 mg PO BID RF: 0 glimepiride 4 mg tablet 4 mg PO BID RF: 0 diclofenac sodium 1 % gel 1 g TOPICAL QID PRN (Reason: Pain) RF: 0 penicillin V potassium 500 mg Tablet 500 mg PO BID MDD SEE PHARMACY COMMENT RF: 0 aspirin 81 mg Tablet,Chewable 81 mg PO DAILY RF: 0 Jardiance 25 mg tablet 25 mg PO DAILY RF: 0 Bydureon BCise 2 mg/0.85 mL auto-injector 2 mg SUBCUT Q7D RF: 0 Changed gabapentin 300 mg capsule 600 mg PO BID Qty: 0 RF: 0 Discontinued furosemide 40 mg tablet 40 mg PO DAILY RF: 0 lisinopril 20 mg tablet 20 mg PO DAILY RF: 0 Discharge Orders: Discharge Order (Routine); Ordered 12/21/20 Ordered By: Kale Jamison Discharge Diet: Regular, Cardiac and Diabetic Discharge Activity: Resume usual activity Patient Instructions: Opioid Safety Activity Restrictions/Additional Instructions: Advised to take inhalation treatment with Advair and Spiriva daily. Advised to continue using Eliquis which is a blood thinner for next 2 weeks. Advised to continue working with incentive spirometry and flutter valve while at home. Advised to continue taking dexamethasone 6 mg for next 7 days. Advised to follow-up with his primary care provider within next 4 to 7 days. Lisinopril and Lasix have been withheld for now. Amlodipine has been added. Please monitor your blood pressure twice daily and maintain a blood pressure diary before you follow-up with your primary care provider for further adjustments of antihypertensives. Antidiabetic medication should also be discussed with primary care provider because of elevated HbA1c. Can take his COVID-19 vaccination in 3 months. Advised to continue following social distancing and isolation protocol for next 10 days. Advised to come back to the ER if fever of more than 101 Fahrenheit, more difficulty breathing than usual or requiring higher oxygen supplementation. Discharge Attestations Time Spent in Discharge Care*: greater than 30 min Specific Discharge Activities: educating patient, educating and/or supporting family/caregiver, discussing with case briefer/social workers/dc planners, documenting/other paperwork and evaluating patient/reviewing data Status at Discharge: Cognitive status at discharge: mildly impaired cognition, Behavioral status at discharge: cooperative, Functional status at discharge: independent ambulation Overall status at discharge: patient is back to baseline Quality Metrics Clinical Quality Measures During this hospital stay, did patient experience: None Coding Level of Care Code Acute [facility] FW DC note Diagnoses Hypoxia R09.02 COVID-19 U07.1 Hypotension I95.9 HONG (acute kidney injury) N17.9 Hypothyroidism E03.9 Type 2 diabetes mellitus E11.9 HTN (hypertension) I10
[2020-12-21] MEDS: remdesivir 100 MG in sodium chloride 0.9% (100 ml) 100 ML IV (12:57)
[2020-12-21 13:17] LABS: Glucose Point of Care 339 mg/dL (70-110)
[2020-12-21 17:31] LABS: Glucose Point of Care 167 mg/dL (70-110)
--- NOTE | 2020-12-24 13:46 | PC.SOCIAL ---
discharge follow up call, patient filled prescriptions and is taking as prescribed. Has a follow up appointment with PCP but isn't sure of the date or time, her grand daughter made the appointment. Is continuing to use 4L O2 NC and tolerating well.
== END 2020-12-21 17:25 | disposition home or self-care (01) | DRG 177 ==
LOC: ER 16:59 → MS 2A 18:27
PROVIDERS: Admitting Provider Student in an Organized Health Care Education/Training Program; Emergency Provider Family Medicine; PCP Internal Medicine; Visit Provider Student in an Organized Health Care Education/Training Program
DX: U07.1 COVID-19 (principal); J12.82 Pneumonia due to coronavirus disease 2019; N17.9 Acute kidney failure, unspecified; E66.9 Obesity, unspecified; Z68.33 Body mass index [BMI] 33.0-33.9, adult; E03.9 Hypothyroidism, unspecified; E11.9 Type 2 diabetes mellitus without complications; I10 Essential (primary) hypertension; E87.5 Hyperkalemia; R09.02 Hypoxemia; F10.11 Alcohol abuse, in remission; E86.0 Dehydration; Z79.84 Long term (current) use of oral hypoglycemic drugs; Z88.0 Allergy status to penicillin; Z79.890 Hormone replacement therapy; Z79.82 Long term (current) use of aspirin; Z82.49 Family history of ischemic heart disease and other diseases of the circulatory system; Z80.9 Family history of malignant neoplasm, unspecified; Z83.3 Family history of diabetes mellitus; Z87.39 Personal history of other diseases of the musculoskeletal system and connective tissue
CPT/HCPCS: 36415; 36416; 71045; 80048; 80053; 80061; 81001; 82550; 82728; 82962; 83036; 83540; 83550; 83605; 83615; 83735; 83880; 84100; 84145; 84443; 84484; 85025; 85378; 85384; 85651; 86140; 86403; 87040; 87426; 87449; 87635; 87641; 93005; 93306; 94640; 94664; 96365; 96372; 96375; 99285; J1100; J1650; J1815 ×2; J3490; J7030

== ENCOUNTER 2023-06-29 10:51 | Inpatient (IN) | payer MEDICARE, MEDICAID, SELFPAY ==
[2023-06-29] VITALS (16 sets, daily range): BP systolic 86–164; BP diastolic 41–92; PULSE 70–139; RESP 18–24; TEMP 38.4–39.7; O2SAT 90–96
--- NOTE | 2023-06-29 10:55 | CT_ITS ---
WS: [id number] CT HEAD TECHNIQUE: Noncontrast CT of the head obtained from the skullbase to the vertex. CLINICAL INFORMATION: Symptoms of acute stroke COMPARISON: None. DLP: [address] scans at [facility] use at least one of these dose optimization techniques: automated e xposure control; mA and/or kV adjustment per patient size (includes targeted exams where dose is matc hed to clinical indication); or iterative reconstruction. FINDINGS: No evidence of intracranial hemorrhage or mass effect. Ventricular system and basal cisterns are tan nt. Mild small vessel changes with mild parenchymal volume loss. No extra-axial fluid collections. No evidence of mass or mass effect. Normal mott-white differentiation. Paranasal sinuses and mastoid air cells are well aerated. .Normal visualized soft tissues. IMPRESSION: 1. No evidence of intracranial hemorrhage or mass effect. 2. No acute intracranial findings. Notified Donte Tellez DO at 06/29/2023 11:08 AM.
--- NOTE | 2023-06-29 10:58 | ED_ITS ---
HPI - Neuro Symptoms/Deficit 2 General: Chief Complaint: Altered Mental Status Stated Complaint: Stroke Alert Time Seen by Provider: 06/29/23 10:53 Source: patient Mode of arrival: EMS History of Present Illness: 73-year-old female presents emergency ro om via EMS last night around 530 began having increased weakness confusion and some weakness is a question of some facial drooping EMS was contacted this morning. Stroke alert was called in the field prior to arrival. Patient is diabetic has a history of hypertension. She is on atorvastatin and aspirin. Onset (ago): hour(s) Associated symptoms: Deny chest pain Review of Systems 2 Const: Denies: fever(s) or chills Card: Denies: chest pain Resp: Denies: dyspnea GI: Denies: abdominal pain : Denies: dysuria, urinary frequency or urinary urgency Musc: Denies: neck pain or back pain Skin/Breast: Denies: rash PFSH ED 2 PFSH: Medical History Hypothyroidism Gout Type 2 diabetes mellitus HTN (hypertension) Family History Other CAD (coronary artery disease) Cancer Diabetes Social History Smoking and tobacco/nicotine status: never used tobacco/nicotine Alcohol intake: former Substance/Drug Use: never Marital status: NIH stroke score 2 NIHSS: Level Of Consciousness - 1a: 1 Level Of Consciousness Questions - 1b: Both Correct Level Of Consciousness Commands - 1c: One Correct Best Gaze - 2: Normal Visual Berman - 3: No Visual Loss Facial Palsy - 4: N ormal Motor Arm Right - 5: No Drift Motor Arm Left - 5: No Drift Motor Leg Right - 6: No Drift (Generalized weakness) Motor Leg Left - 6: No Drift (Generalized weakness) Limb Ataxia - 7: Present In Two Limbs (Bilateral upper extremities) Sensory - 8: Normal Best Language - 9: No Aphasia D ysarthia - 10: Mild/Moderate Dysarthia Extinction And Inattention - 11: 0 Score: Total Score: 5 Physical Exam 2 Const: COMMON NORMALS: no acute distress GENERAL APPEARANCE: cooperative and comfortable ORIENTATION/CONSCIOUSNESS: Yes awake, Yes oriented to person, Yes oriented to place and Yes oriented to time HENMT: COMMON NORMALS: normocephalic, atraumatic and hearing grossly normal bilaterally HEAD & SCALP: normocephalic and atraumatic Resp: COMMON NORMALS: normal respiratory effort, No retractions, No use of accessory muscles and clear to auscultation bilaterally AUSCULTATION: clear to auscultation bilaterally Cardio: COMMON NORMALS: regular rate, regular rhythm and No murmurs present (Cardio) RATE: regular rate RHYTHM: regular rhythm GI: COMMON NORMALS: Soft to palpation and No hepatosplenomegaly present A USCULTATION: Yes normoactive bowel sounds PALPATION: Yes Soft to palpation, No Tenderness to palpation present (GI), No Guarding due to palpation present (GI) and Yes No hepatosplenomegaly present Extremity: COMMON NORMALS: normal to inspection, capillary refill normal, no clubbing, cyanosis or edema, no calf tenderness and no pedal edema Neuro: SENSORIUM/ORIENTATION: Yes oriented to person, Yes oriented to place and Yes oriented to time Skin: COMMON NORMALS: no rashes or lesions noted GENERAL SKIN EXAM: no rashes or lesions noted Course 2 Vital Signs: Vital signs: Vital Signs Temperature 101.2 F H 06/29/23 12:58 Pulse Rate 105 H 06/29/23 14:00 Respiratory Rate 19 H 06/29/23 14:00 Blood Pressure 140/70 06/29/23 13:30 Pulse Oximetry 91 06/29/23 14:00 Oxygen Delivery Me thod Oxymask 06/29/23 14:00 Oxygen Flow Rate 5 06/29/23 14:00 MDM - Neuro Symptoms/Deficit Medical Decision Making Patient stroke score is 5 however she has generalized weakness of all extremities and some mild ataxia of both upper extremities she has difficulty with word finding but she is hypoxic. She appears to be more of a hypoxic issue than it does to be an acute CVA event. Will complete the stroke workup as well as workup for hypoxia. She normally is not on oxygen EMS reported requiring 6 L to maintain sats at 93%. Influenza A is positive. Her oxygen saturation improved and her mental functions much clearer as well. She is still requiring an oxime mask. CTA of the chest completed no evidence of PE or infiltrate. Temp improved somewhat with antipyretics. Discussed Dr. Berry will admit hospital for encephalopathy acute hypoxia influenza A. Blood and sputum cultures have been ordered. Medical Records I reviewed the patient's medical records. Lab Data I reviewed the patient's lab results. 06/29/23 11:03 06/29/23 11:03 Laboratory Results WBC 10.01 10^3/uL (3.29-11.43) 06/29/23 11:03 RBC 4.69 10^6/uL (3.85-5.65) 06/29/23 11:03 Hgb 13.00 g/dL (11.27-16.99) 06/29/23 11:03 Hct 42.0 % (36-47) 06/29/23 11:03 MCV 89.6 fl (85-98) 06/29/23 11:03 MCH 27.7 pg (27-33) 06/29/23 11:03 MCHC 31.0 g/dL (30-55) 06/29/23 11:03 RDW 14.1 % (12.1-15.1) 06/29/23 11:03 Plt Count 257 10^3/cmm (157-399) 06/29/23 11:03 MPV 9.4 fL (7.4-10.4) 06/29/23 11:03 Neut % (Auto) 74.7 % 06/29/23 11:03 Lymph % (Auto) 12.8 % 06/29/23 11:03 Desha % (Auto) 10.4 % 06/29/23 11:03 Eos % (Auto) 0.7 % 06/29/23 11:03 Baso % (Auto) 0.6 % 06/29/23 11:03 Neut # (Auto) 7.48 10^3/uL (1.8-7.7) 06/29/23 11:03 Lymph # (Auto) 1.3 10^3/uL (0.8-4.8) 06/29/23 11:03 Desha # (Auto) 1.0 10^3/uL (0.2-0.9) H 06/29/23 11:03 Eos # (Auto) 0.1 10^3/uL (0.0-0.8) 06/29/23 11:03 Baso # (Auto) 0.1 10^3/uL (0.0-0.1) 06/29/23 11:03 Nucleated RBC % (auto) 0 % 06/29/23 11:03 Nucleated RBCs # 0.0 /100WBC 06/29/23 11:03 PT 13.90 SECONDS (12.1-14.9) 06/29/23 11:03 INR 1.03 (0.8-1.2) 06/29/23 11:03 APTT 30.8 SECONDS (23.9-36.7) 06/29/23 11:03 Specimen Type Arterial 06/29/23 11:11 Sample Site Brachial, right 06/29/23 11:11 ABG pH 7.43 (7.35-7.45) 06/29/23 11:11 ABG pCO2 41.2 mmHg (35-45) 06/29/23 11:11 ABG pO2 52.9 mmHg (80.0-100.0) L 06/29/23 11:11 ABG PO2/FiO2 Ratio 0 06/29/23 11:11 ABG HCO3 27.4 mmol/L (22-26) H 06/29/23 11:11 ABG O2 Saturation 89.3 06/29/23 11:11 ABG Base Excess 2.8 mmol/L (-2.0-2.0) H 06/29/23 11:11 Gallo Test N/a 06/29/23 11:11 A-a O2 Gradient 23.5 mmHg (5-10) H 06/29/23 11:11 Hematocrit 40.1 % (37-47) 06/29/23 11:11 Hgb O2 Saturation 87.2 % (95-100) L 06/29/23 11:11 Carboxyhemoglobin 1.8 %THgb (0.4-20.1) 06/29/23 11:11 Methemoglobin 0.6 % (0.4-1.5) 06/29/23 11:11 Total Hemoglobin 13.1 g/dL (12-16) 06/29/23 11:11 Sodium 140.0 mmol/L (131-143) 06/29/23 11:11 Potassium 4.1 mmol/L (3.5-5.0) 06/29/23 11:11 Glucose 168.0 mg/dL (70-115) H 06/29/23 11:11 Ionized Calcium 1.2 mmol/L (1.1-1.4) 06/29/23 11:11 O2 Delivery Device Nc 06/29/23 11:11 O2 Liters/Min 5.0 % 06/29/23 11:11 FiO2 40.0 % 06/29/23 11:11 Pheresis Specialist ID glc 06/29/23 11:11 Sodium 138 mmol/L (136-145) 06/29/23 11:03 Potassium 4.6 mmol/L (3.5-5.1) 06/29/23 11:03 Chloride 100 mmol/L (98-107) 06/29/23 11:03 Carbon Dioxide 24 mmol/L (22-29) 06/29/23 11:03 Anion Gap 18.6 (5-19) 06/29/23 11:03 BUN 11 mg/dL (8-23) 06/29/23 11:03 Creatinine 0.9 mg/dL (0.5-0.9) 06/29/23 11:03 GFR Calculation Not Reportable 06/29/23 11:03 Glucose 172 mg/dL (65-115) H 06/29/23 11:03 POC Glucose 169 mg/dL (70-110) H 06/29/23 11:02 Calculated Osmolality 289 mOsm/kg (285-295) 06/29/23 11:03 Lactic Acid 1.9 mmol/L (0.5-2.2) 06/29/23 11:03 Calcium 8.5 mg/dL (8.5-10.5) 06/29/23 11:03 Total Bilirubin 0.5 mg/dL (0.15-1.2) 06/29/23 11:03 AST 19 U/L (0-32) 06/29/23 11:03 ALT 14 U/L (0-33) 06/29/23 11:03 Alkaline Phosphatase 109 U/L (35-105) H 06/29/23 11:03 Troponin T Baseline 24 ng/L (0-10) H 06/29/23 11:03 Troponin T 120 Minute 27.18 ng/L (0-10) H 06/29/23 13:20 Delta Troponin T 3.18 ABS# (0-10) 06/29/23 13:20 NT-Pro-B Natriuret Pep 596 pg/mL (0-125) H 06/29/23 11:03 Total Protein 6.6 g/dL (6.6-8.7) 06/29/23 11:03 Albumin 3.9 g/dL (3.5-5.2) 06/29/23 11:03 Globulin 2.7 g/dL (1.3-4.6) 06/29/23 11:03 Procalcitonin 0.11 ng/mL (0-0.5) 06/29/23 11:03 Urine Color Yellow (Yellow) 06/29/23 12:14 Urine Appearance Clear (CLEAR) 06/29/23 12:14 Urine pH 8 (5-7) H 06/29/23 12:14 Ur Specific [facility] [place] 1.005 (1.005-1.030) 06/29/23 12:14 Urine Protein Neg (Negative) 06/29/23 12:14 Urine Glucose (UA) 4+ (Normal) H 06/29/23 12:14 Urine Ketones Negative (Negative) 06/29/23 12:14 Urine Blood 2+ (Negative) H 06/29/23 12:14 Urine Nitrate Negative (Negative) 06/29/23 12:14 Urine Bilirubin Neg (Negative) 06/29/23 12:14 Prot Sulfosalicylic Acd Positive (Negative) 06/29/23 12:14 Urine Urobilinogen Norm mg/dL (Negative) 06/29/23 12:14 Ur Leukocyte Esterase 1+ (Negative) H 06/29/23 12:14 Urine RBC 0-4 /hpf (0-2) H 06/29/23 12:14 Urine WBC 0-4 /hpf (0-5) H 06/29/23 12:14 Ur Squamous Epith Cells 0-4 /hpf (0-5) H 06/29/23 12:14 Amorphous Sediment Not Reportable 06/29/23 12:14 Urine Bacteria Trace /hpf (NONE) 06/29/23 12:14 Urine Mucus None /hpf 06/29/23 12:14 Urine Opiates Screen Negative ng/mL (Negative) 06/29/23 12:14 Ur Barbiturates Screen Negative ng/mL (Negative) 06/29/23 12:14 Ur Phencyclidine Scrn Negative ng/mL (Negative) 06/29/23 12:14 Ur Amphetamines Screen Negative ng/mL (Negative) 06/29/23 12:14 U Benzodiazepines Scrn Negative ng/mL (Negative) 06/29/23 12:14 Urine Cocaine Screen Negative ng/mL (Negative) 06/29/23 12:14 U Marijuana (THC) Screen Negative ng/mL (Negative) 06/29/23 12:14 Adenovirus (PCR) Not detected (NOT DETECT) 06/29/23 11:30 C. pneumoniae DNA (PCR) Not detected (NOT DETECT) 06/29/23 11:30 Coronavirus 229E (PCR) Not detected (NOT DETECT) 06/29/23 11:30 Human Metapneumovir PCR Not detected (NOT DETECT) 06/29/23 11:30 Influenza A (H1) PCR Not detected (NOT DETECT) 06/29/23 11:30 Influ A (H1/09) PCR Detected (NOT DETECT) A 06/29/23 11:30 Influenza A (H3) PCR Not detected (NOT DETECT) 06/29/23 11:30 Influenza Type A (PCR) Detected (NOT DETECT) A 06/29/23 11:30 Influenza Type B (PCR) Not detected (NOT DETECT) 06/29/23 11:30 M. pneumoniae (PCR) Not detected (NOT DETECT) 06/29/23 11:30 Parainfluenza 1 (PCR) Not detected (NOT DETECT) 06/29/23 11:30 Parainfluenza 2 (PCR) Not detected (NOT DETECT) 06/29/23 11:30 Parainfluenza 3 (PCR) Not detected (NOT DETECT) 06/29/23 11:30 Parainfluenza 4 (PCR) Not detected (NOT DETECT) 06/29/23 11:30 RSV Type A (PCR) Not detected (NOT DETECT) 06/29/23 11:30 RSV Type B (PCR) Not detected (NOT DETECT) 06/29/23 11:30 Entero/Rhino (PCR) Not detected (NOT DETECT) 06/29/23 11:30 SARS-CoV-2 (PCR) Not detected (NOT DETECT) 06/29/23 11:30 All radiology interpretation(s) finalized by discharge Discharge Plan Discharge Patient Disposition: Admitted As Inpatient Admit Provider: Steph Berry Clinical Impression: Hypoxia, Hypotension, Influenza B, Encephalopathy Condition: Stable Coding Level of Care Code ED Lathing Supervisor for Chg Jagdeep
--- NOTE | 2023-06-29 11:06 | CT_ITS ---
WS: [id number] CTA HEAD AND NECK TECHNIQUE: Contrast enhanced CTA of the head and neck with coronal and sagittal reformatted images an d maximum intensity projection (MIP) images. NASCET criteria utilized. CLINICAL INFORMATION: weakness/confusion COMPARISON: None. DLP: 431.[address] scans at [facility] use at least one of these dose optimization techniques: automated e xposure control; mA and/or kV adjustment per patient size (includes targeted exams where dose is matc hed to clinical indication); or iterative reconstruction. FINDINGS: 5.0 x 5.0 mm lobulated aneurysm LEFT proximal A1 segment. Consider neurosurgery consultatio n. RIGHT: RIGHT common carotid artery is patent. No significant RIGHT ICA stenosis. RIGHT ICA is patent to the skull base. LEFT: LEFT common carotid artery is patent. Mild calcified atheromatous plaque LEFT carotid bulb. LEF T ICA is patent to the skull base. No significant LEFT ICA stenosis. INTRACRANIAL CTA: LEFT dominant vertebral artery. Smaller but patent RIGHT vertebral artery. Proximal basilar artery is patent. Normal vascularity to the BARREL STRAIGHTENER territory bilaterally. Both ICAs are patent at the skull base. Small RIGHT A1 segment. Normal vascularity to the ANA and MCA territories bilaterally. No evidence of proximal flow-limiting stenosis. Aortic arch calcification. Proximal subclavian arteries are patent. Lung apices are well aerated. Par anasal sinuses and mastoid air cells are well aerated. Numerous prominent cervical lymph nodes simila r in appearance to 2014. Numerous normal sized mediastinal lymph nodes. Largest cluster of lymph node s posterior to the LEFT submandibular gland unchanged since 2014. Stability is reassuring. This clust er measures approximately 1.8 x 1.8 cm. IMPRESSION: 1. No significant ICA stenosis bilaterally. 2. No flow-limiting intracranial stenosis. 3. Lobulated LEFT proximal A1 segment aneurysm measuring 5 x 5 mm. Recommend neurosurgery consultati on. 4. Numerous prominent cervical chain lymph nodes the largest cluster of lymph nodes posterior to the LEFT submandibular gland measuring 1.8 x 1.8 cm with enhancement. These are similar in appearance si nce 2014 but indeterminate. Recommend 6-month follow-up contrast-enhanced neck CT. Notified Donte Tellez DO at 06/29/2023 12:31 PM.
--- NOTE | 2023-06-29 11:07 | XR_ITS ---
WS: [id number] EXAM: Chest 1 view. INDICATION: Altered mental status. History of infiltrates. Exam date: 06/29/2023. COMPARISON: 12/20/2020. FINDINGS: The heart is prominent in size. The mediastinum is not widened. The aorta is calcified with atheroscl erotic change. Mild vascular prominence is suspected without overt failure or large effusion. There is no dense cons olidation is noted. IMPRESSION: There is no overt failure or dense consolidation.
--- NOTE | 2023-06-29 11:07 | ECG_ITS ---
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 Measurements Intervals [place] Rate: 109 P: 100 DC: 194 QRS: -69 QRSD: 144 T: 72 QT: 350 QTc: 473 Interpretive Statements SINUS TACHYCARDIA RIGHT BUNDLE BRANCH BLOCK [120+ ms QRS DURATION, UPRIGHT V1, 40+ ms S IN I/aVL/V4/V5/V6] LEFT ANTERIOR FASCICULAR BLOCK [QRS AXIS <= -45, QR IN I, RS IN II] LEFT VENTRICULAR HYPERTROPHY AND ST-T CHANGE [VOLTAGE CRITERIA PLUS ST/T ABNORMALITY] POSSIBLE ANTERIOR MYOCARDIAL INFARCTION , PROBABLY OLD [30 ms Q WAVE IN V3/V4, OR R < 0.2 mV IN V4] Compared to ECG 12/17/2020 18:29:09 Right bundle-branch block now present Myocardial infarct finding now present Sinus rhythm no longer present Sinus arrhythmia no longer present Incomplete right bundle-branch block no longer present ST (T wave) deviation still present Electronically Signed On 06-30-2023 10:48:31 TRANSFILL TECHNICIAN by Maryuri Henao M.D. [id number]
[2023-06-29 11:10] LABS: Basophils # 0.1 10^3/uL (0.0-0.1); Basophils % 0.6 %; Eosinophils # 0.1 10^3/uL (0.0-0.8); Eosinophils % 0.7 %; Lymphocytes # 1.3 10^3/uL (0.8-4.8); Lymphocytes % 12.8 %; Mean Corpuscular Hemoglobin 27.7 pg (27-33); Mean Corpuscular Volume 89.6 fl (85-98); Mean Platelet Volume 9.4 fL (7.4-10.4); Monocytes % 10.4 %; Neutrophils # 7.48 10^3/uL (1.8-7.7); Neutrophils % 74.7 %; Nucleated Red Blood Cells % 0 %; Platelet Count 257 10^3/cmm (157-399); Red Blood Count 4.69 10^6/uL (3.85-5.65); Red Cell Distribution Width 14.1 % (12.1-15.1); White Blood Count 10.01 10^3/uL (3.29-11.43)
[2023-06-29 11:21] LABS: ABG PCO2 41.2 mmHg (35-45); ABG PH Result 7.43 (7.35-7.45); Alveolar-Arterial Oxygen Gradi 23.5 mmHg (5-10); Arterial Blood Gas Hematocrit 40.1 % (37-47); Base Excess ABG 2.8 mmol/L (-2.0-2.0); Blood Gas Operator Identificat glc; Blood Gas Sample Site Brachial, right; Blood Gas Sample Type Arterial; Carboxyhemoglobin 1.8 %THgb (0.4-20.1); HCO3 ABG 27.4 mmol/L (22-26); HGB O2 Sat 87.2 % (95-100); Ionized Calcium Level - ABG 1.2 mmol/L (1.1-1.4); Methemoglobin 0.6 % (0.4-1.5); Oxygen Device NC; Oxygen Saturation ABG 89.3; PO2 ABG 52.9 mmHg (80.0-100.0); PO2 FiO2 Ratio Arterial Blood 0; Potassium Level - ABG 4.1 mmol/L (3.5-5.0); Total Hemoglobin 13.1 g/dL (12-16)
[2023-06-29 11:22] LABS: INR 1.03 (0.8-1.2); Partial Thromboplastin Time 30.8 SECONDS (23.9-36.7)
[2023-06-29 11:27] LABS: Troponin(5th) Baseline 24 ng/L (0-10)
[2023-06-29 11:28] LABS: Alanine Aminotransferase 14 U/L (0-33); Albumin Level 3.9 g/dL (3.5-5.2); Alkaline Phosphatase 109 U/L (35-105); Blood Urea Nitrogen 11 mg/dL (8-23); Calcium 8.5 mg/dL (8.5-10.5); Carbon Dioxide 24 mmol/L (22-29); Chloride 100 mmol/L (98-107); Globulin 2.7 g/dL (1.3-4.6); Glucose 172 mg/dL (65-115); Osmolality Calculated 289 mOsm/kg (285-295); Sodium 138 mmol/L (136-145); Total Bilirubin 0.5 mg/dL (0.15-1.2); Total Protein 6.6 g/dL (6.6-8.7)
[2023-06-29 11:29] LABS: Anion Gap 18.6 (5-19); Aspartate Amino Transferase 19 U/L (0-32); Potassium 4.6 mmol/L (3.5-5.1)
[2023-06-29 11:39] LABS: Glucose Point of Care 169 mg/dL (70-110)
[2023-06-29] MEDS: iohexol 350 mg/mL 500 mL Btl (per mL) IV ×2 (11:51→14:22)
--- NOTE | 2023-06-29 11:53 | PC.PHAR ---
CARROLL WENT OVER MEDICATION LIST- STATES PT DID NOT TAKE ANY MEDS TODAY. 06/29/23
[2023-06-29 11:55] LABS: NT Pro B Type Natriuretic Pept 596 pg/mL (0-125); Procalcitonin 0.11 ng/mL (0-0.5)
[2023-06-29] MEDS: FUROsemide 10 mg/mL SDV 4mL 40 MG IVP (12:32)
[2023-06-29 12:34] LABS: Amphetamines Screen Urine Negative (Negative); Barbiturates Screen Urine Negative (Negative); Benzodiazepines Screen Urine Negative (Negative); Cocaine Screen Urine Negative (Negative); Opiate Screen Urine Negative (Negative); PCP Screen Urine Negative (Negative); THC Screen Urine Negative (Negative)
[2023-06-29 12:35] LABS: Urine Appearance Clear (CLEAR); Urine Color Yellow (Yellow)
[2023-06-29 12:36] LABS: Bilirubin Urine Neg (Negative); Blood Urine 2+ (Negative); Glucose Urine UA 4+ (Normal); Ketones Urine Negative (Negative); Nitrate Urine Negative (Negative); Protein Urine Neg (Negative); Specific Gravity, Urine 1.005 (1.005-1.030); pH Urine 8 (5-7)
[2023-06-29 12:37] LABS: Add Urine Microscopic? YES; Leukocyte Esterase Urine 1+ (Negative); Sulfosalicylic Acid Urine Positive (Negative); Urobilinogen Urine Norm (Negative)
[2023-06-29 12:41] LABS: Add Urine Culture? No; Bacteria Urine TRACE /hpf; RBC Urine 0-4 /hpf (0-2); Squamous Epithelial Cell Urine 0-4 /hpf (0-5); WBC Urine 0-4 /hpf (0-5)
[2023-06-29] MEDS: acetaminophen 1,000 MG/100 ML PIGGYBACK 400 MG IV (12:54)
--- NOTE | 2023-06-29 13:06 | ECG_ITS ---
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 Measurements Intervals [place] Rate: 103 P: 49 ND: 166 QRS: -66 QRSD: 121 T: 33 QT: 344 QTc: 452 Interpretive Statements SINUS TACHYCARDIA RIGHT BUNDLE BRANCH BLOCK [120+ ms QRS DURATION, UPRIGHT V1, 40+ ms S IN I/aVL/V4/V5/V6] VOLTAGE CRITERIA FOR LVH [MEETS CRITERIA IN ONE OF: R(aVL), S(V1), R(V5), R(V5/V6)+S(V1)] POSSIBLE ANTERIOR MYOCARDIAL INFARCTION , PROBABLY OLD [30 ms Q WAVE IN V3/V4, OR R < 0.2 mV IN V4] INFERIOR MYOCARDIAL INFARCTION , PROBABLY OLD [40+ ms Q WAVE AND/OR ST/T ABNORMALITY IN II/aVF] Compared to ECG 06/29/2023 11:07:42 Left anterior fascicular block no longer present ST (T wave) deviation no longer present Myocardial infarct finding still present Electronically Signed On 06-30-2023 20:10:02 APPLE PEELER OPERATOR by Maryuri Henao M.D. [id number]
[2023-06-29 13:08] LABS: Lactic Sepsis W/Reflex 1.9 mmol/L (0.5-2.2)
--- NOTE | 2023-06-29 13:12 | CT_ITS ---
WS: [id number] CTA OF THE CHEST WITH PULMONARY EMBOLISM PROTOCOL TECHNIQUE: High-resolution contrast enhanced CTA of the chest with coronal and sagittal reformatted i mages with pulmonary embolism protocol. MIP images are also reviewed. CLINICAL INFORMATION: hypoxia COMPARISON: None. DLP: 438.[address] scans at [facility] use at least one of these dose optimization techniques: automated e xposure control; mA and/or kV adjustment per patient size (includes targeted exams where dose is matc hed to clinical indication); or iterative reconstruction. FINDINGS: Proximal main pulmonary arteries are normal. Normal segmental and subsegmental pulmonary arteries. No evidence of pulmonary embolus. Normal caliber thoracic aorta. Aortic calcification. Numerous normal size mediastinal and parabronchial lymph nodes. No axillary lymphadenopathy. Cardiomegaly. Small esop hageal hiatal hernia. Lungs are well aerated. Slight subsegmental atelectasis in the lung bases. A fe w calcified granulomas. No focal consolidation or pleural fluid. Adrenal glands are normal. Hepatomegaly. Moderate thoracic kyphosis. IMPRESSION: 1. No evidence of pulmonary embolus. 2. Slight subsegmental atelectasis in the lung bases. 3. Cardiomegaly and hepatomegaly.
[2023-06-29 13:19] LABS: Adenovirus Not Detected (NOT DETECT); Chlamydia Pneumoniae Not Detected (NOT DETECT); Coronavirus 229E,HKU1,NL63,OC4 Not Detected (NOT DETECT); Human Metapneumovirus Not Detected (NOT DETECT); Human Rhinovirus/Enterovirus Not Detected (NOT DETECT); Influenza A Detected (NOT DETECT); Influenza A H1 Not Detected (NOT DETECT); Influenza A H1-2009 Detected (NOT DETECT); Influenza A H3 Not Detected (NOT DETECT); Influenza B Not Detected (NOT DETECT); Mycoplasma Pneumoniae Not Detected (NOT DETECT); Parainfluenza Virus Type 1 Not Detected (NOT DETECT); Parainfluenza Virus Type 2 Not Detected (NOT DETECT); Parainfluenza Virus Type 3 Not Detected (NOT DETECT); Parainfluenza Virus Type 4 Not Detected (NOT DETECT); Respiratory Syncytial Virus A Not Detected (NOT DETECT); Respiratory Syncytial Virus B Not Detected (NOT DETECT); SARS-COV-2 Not Detected (NOT DETECT)
[2023-06-29 13:59] LABS: Troponin 5 2HR 27.18 ng/L (0-10); Troponin 5 2HR Delta 3.18 ABS# (0-10)
--- NOTE | 2023-06-29 17:06 | P.HP_ITS ---
Providers/Chief Complaint 2 Admitting Physician: Steph Berry MD Primary Care Provider: Larisa Culp MD Chief Complaint: Stroke Alert History of Present Illness Ximena Livingston is a 73 year old female who started getting sick this Tuesday, she experiencing extreme lethargy and fatigue, experienced recurrent falls, she at least fell 3 times, patient is stating that she does not use oxygen, does not drink alcohol does not smoke, there was concern for stroke related changes today that is why she was brought to the hospital for further evaluation however it was ruled out on admission she was tested positive for the influenza A, she is developing sepsis related to viral pneumonia for which she required 2 L septic bolus along 2 g IV ceftriaxone, CTA rule out PE, blood cultures taken, EKG showing sinus tachycardia Patient is septic with fever tachycardia tachypnea high lactic acid Echo has been requested Review of Systems 2 Const: Reports: fever(s), chills and fatigue Eyes: Denies: change in vision ENMT: Denies: throat pain Card: Denies: chest pain Resp: Reports: dyspnea GI: Denies: abdominal pain : Denies: flank pain Musc: Reports: extremity pain Skin/Breast: Denies: rash Neuro: Denies: headache(s) Psych: Denies: anxiety Endo: Denies: polyuria Medications/Allergies Home Medications Medication Instructions Recorded Confirmed Last Taken Type aspirin 81 mg chewable tablet 81 mg PO QAM 12/17/20 06/29/23 06/28/23 History atorvastatin 20 mg tablet 20 mg PO QAM 12/17/20 06/29/23 06/28/23 History diclofenac sodium 1 % topical gel 1 g topical QID PRN Pain 12/17/20 06/29/23 Unknown History empagliflozin 25 mg tablet 25 mg PO QAM 12/17/20 06/29/23 06/28/23 History (Jardiance) glimepiride 4 mg tablet 4 mg PO BID 12/17/20 06/29/23 06/28/23 History metformin 1,000 mg tablet 1,000 mg PO BID 12/17/20 06/29/23 06/28/23 History gabapentin 300 mg capsule 600 mg (2 x 300 mg) PO BID #0 caps 12/21/20 06/29/23 06/28/23 Rx betamethasone dipropionate 0.05 % See Rx Instructions .Route .COMPLEX 06/29/23 06/29/23 Unknown History topical cream clotrimazole 1 % topical cream See Rx Instructions .Route .COMPLEX 06/29/23 06/29/23 Unknown History furosemide 20 mg tablet 20 mg PO QAM 06/29/23 06/29/23 06/28/23 History levothyroxine 75 mcg tablet 75 mcg PO QAM 06/29/23 06/29/23 06/28/23 History lisinopril 20 mg tablet 20 mg PO QAM 06/29/23 06/29/23 06/28/23 History semaglutide 14 mg tablet (Rybelsus) 14 mg PO QAM 06/29/23 06/29/23 06/28/23 History Allergies Allergy/AdvReac Type Severity Reaction Status Date / Time No Known Allergies Allergy Unverified 12/17/20 16:13 PFSH Acute 2 PFSH: Medical History (Updated 06/29/23 @ 19:59 by Steph Berry MD) Influenza B Pneumonia due to 2019 novel coronavirus HONG (acute kidney injury) COVID-19 Hypothyroidism Gout Type 2 diabetes mellitus HTN (hypertension) Family History Other CAD (coronary artery disease) Cancer Diabetes Social History Smoking and tobacco/nicotine status: never used tobacco/nicotine Alcohol intake: former Substance/Drug Use: never Marital status: Vitals/I&O/Wt Last Vital Signs Temp 101.2 F H 06/29/23 12:58 Pulse 94 06/29/23 16:24 Resp 20 H 06/29/23 16:24 BP 117/55 06/29/23 16:24 Pulse Ox 96 06/29/23 16:24 O2 Del Method Nasal Cannula 06/29/23 16:24 O2 Flow Rate 5 06/29/23 16:24 06/29/23 06/29/23 06/29/23 06:59 14:59 22:59 Intake Total 100 / 100 Balance 100 / 100 Physical Exam 2 Narrative: Patient is currently on heated high flow 40 L 50% S1, S2 tachycardia awake and alert nonfocal neuroexam Pleasant and cooperative Bilateral breath sounds with rhonchi Febrile No sign meningitis is at the bedside No active cough Data 06/29/23 11:03 06/29/23 11:03 Micro: Microbiology 06/29/23 13:27 Blood Culture - Preliminary Blood SPECIMEN COLLECTED 06/29/23 13:20 Blood Culture - Preliminary Blood SPECIMEN COLLECTED A&P Assessment and plan (1) Hypotension: Qualifiers: Hypotension type: unspecified hypotension type Qualified Code(s): I95.9 - Hypotension, unspecified (2) Hypothyroidism: (3) Encephalopathy: (4) Hypoxia: (5) Influenza: (6) Influenza A: (7) Sepsis: (8) Intracranial aneurysm: Plan Sepsis related to viral illness Criteria met with tachypnea tachycardia, fever Patient received septic bolus, antibiotics, blood cultures Low blood pressure, responded well to 2 L septic bolus Encephalopathy related to sepsis Monitor in ICU Able to protect airway Metabolic encephalopathy There was concern for CVA A1 aneurysm noted 5 x 5 Will consult neurology Keep blood pressure below 130/80mmhg Will use lisinopril and labetalol if blood pressure stays high however she is requiring IV fluids for low blood pressure as of now No active bleeding, CT head and neck unremarkable Acute hypoxia related to pneumonia Multiple falls No acute fracture Currently on heated high flow Patient is diabetic we will keep her on sliding scale Hypothyroid I will monitor TSH continue levothyroxine Cardiomegaly noted with mild interstitial congestion Requested echo Full code Consistent carb diet Sliding scale DVT prophylaxis on board Attestations 2 Medical Necessity Statement*: More than 2 midnights anticipated Diagnoses Hypotension I95.9 Hypotension type: unspecified hypotension type Hypothyroidism E03.9 Encephalopathy G93.40 Hypoxia R09.02 Influenza J11.1 Influenza A J10.1 Sepsis A41.9 Intracranial aneurysm I67.1
--- NOTE | 2023-06-29 17:06 | ECG_ITS ---
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 Measurements Intervals [place] Rate: 119 P: 65 DC: 164 QRS: -73 QRSD: 144 T: 60 QT: 335 QTc: 472 Interpretive Statements SINUS TACHYCARDIA RIGHT BUNDLE BRANCH BLOCK [120+ ms QRS DURATION, UPRIGHT V1, 40+ ms S IN I/aVL/V4/V5/V6] LEFT ANTERIOR FASCICULAR BLOCK [QRS AXIS <= -45, QR IN I, RS IN II] LEFT VENTRICULAR HYPERTROPHY AND ST-T CHANGE [VOLTAGE CRITERIA PLUS ST/T ABNORMALITY] POSSIBLE ANTERIOR MYOCARDIAL INFARCTION , PROBABLY OLD [30 ms Q WAVE IN V3/V4, OR R < 0.2 mV IN V4] Compared to ECG 06/29/2023 13:39:08 Left anterior fascicular block now present ST (T wave) deviation now present Myocardial infarct finding still present Electronically Signed On 06-30-2023 20:12:32 FOOD CRITIC by Maryuri Henao M.D. [id number]
--- NOTE | 2023-06-29 17:09 | USCV_ITS ---
Ximena Livingston Age: 73 Gender: F : 1950 Exam Date: 06/29/2023 18:10 Ordering Phys: Steph Berry MD Technologist: LOUIS Exam Location: [facility] [place] Indication: order says chf . No history of cardiac intervention per patient. BP: 117 / 55 HR: 83 Rhythm: Sinus Technical Quality: Adequate MEASUREMENTS (Male / Female) Normal Values 2D ECHO LV Diastolic Diameter PLAX 3.1 cm 4.2 - 5.9 / 3.9 - 5.3 cm IVS Diastolic Thickness 1.8 cm 0.6 - 1.0 / 0.6 - 0.9 cm IVS Systolic Thickness 2.3 cm LVPW Diastolic Thickness 1.4 cm 0.6 - 1.0 / 0.6 - 0.9 cm LVPW Systolic Thickness 1.6 cm LVOT Diameter 2.1 cm LV Ejection Fraction 2D Teich 55.0 % LV Ejection Fraction MOD 2C 62.9 % LV Ejection Fraction 2C AL 0.0 % LA Diameter 3.5 cm Aorta at Sinotubular Diameter 3.6 cm IVC Diameter 0.9 cm M-MODE LA Ao Ratio MM 1.6 AV Cusp Separation MM 0.9 cm DOPPLER AV Peak Velocity 217.0 cm/s LVOT Peak Velocity 97.0 cm/s AV Area Cont Eq vti 1.6 cm squared AV Area Cont Eq pk 1.5 cm squared MV Peak Velocity 103.0 cm/s MV Area PHT 2.5 cm squared Mitral E to A Ratio 0.8 TV Peak E Velocity 60.0 cm/s PV Peak Velocity 130.0 cm/s FINDINGS Left Ventricle Normal left ventricular size and systolic function, EF of 62%. Mild left ventricular hypertrophy. No regional wall motion abnormalities. Grade I/IV diastolic dysfunction (abnormal relaxation filling pattern), normal to mildly elevated filling pressures. Right Ventricle Normal right ventricular size and systolic function. Right Atrium Normal right atrial size. Left Atrium Mildly increased left atrial size. Mitral Valve Mild mitral annular calcification. Aortic Valve Thickened aortic valve. Moderate aortic valve calcification. Tricuspid Valve No gross abnormality noted Pulmonic Valve Not visualized well Pericardium No pericardial effusion. Aorta Normal aortic annulus size. Plaque seen in the ascending aorta. IVC Appears to be very small and collapses appropriately CONCLUSIONS Normal left ventricular size and systolic function, EF of 62%. Mild left ventricular hypertrophy. No regional wall motion abnormalities. Grade I/IV diastolic dysfunction (abnormal relaxation filling pattern), normal to mildly elevated filling pressures. Moderate aortic valve calcification. Features of aortic valve sclerosis Mild mitral annular calcification. Mildly increased left atrial size. There is no pericardial effusion. There are no intracardiac masses. Compared to the study from 12/18/2020, there may not be a significant change Dr Maryuri Henao MD FAC (Electronically Signed) Final Date: 30 June 2023 08:00 S
[2023-06-29 17:33] LABS: Troponin 5 6HR 28.22 ng/L (0-10); Troponin 5 6HR Delta 4.22 ng/L (0-12)
[2023-06-29 17:51] LABS: Procalcitonin 0.16 ng/mL (0-0.5); Thyroid Stimulating Hormone 1.13 uIU/mL (0.27-4.20)
[2023-06-29] MEDS: methylPREDNISolone sod succ 40 mg/mL INJ IVP (17:58)
[2023-06-29] MEDS: oseltamivir phosphate 75 mg Capsule PO (17:59)
[2023-06-29] MEDS: gabapentin 300 mg Capsule 600 MG PO (17:59)
[2023-06-29 18:05] LABS: Glucose Point of Care 193 mg/dL (70-110)
--- NOTE | 2023-06-29 19:24 | PC.NURSE ---
Report called to JOVI Gavin in ICU. All questions and concerns were addressed at time of report.
[2023-06-29 21:06] LABS: Estmated Average Glucose 169; Hemoglobin A1C 7.5 % (4.0-6.0)
[2023-06-29 21:30] LABS: Glucose Point of Care 328 mg/dL (70-110)
[2023-06-29] MEDS: cefTRIAXone 2,000 MG in sodium chloride 0.9% (plus) 50 ML 100 MG IV (21:32)
[2023-06-29] MEDS: insulin lispro 100 unit/1 mL SUBCUT (21:32)
[2023-06-30] VITALS (63 sets, daily range): BP systolic 103–152; BP diastolic 57–86; PULSE 62–90; RESP 14–26; TEMP 36.4–37.1; O2SAT 84–98
[2023-06-30 04:26] LABS: Basophils % 0.4 %; Hematocrit 40.6 % (36-47); Lymphocytes # 1.5 10^3/uL (0.8-4.8); Lymphocytes % 18.8 %; Mean Corpuscular HGB Conc 31.5 g/dL (30-55); Mean Corpuscular Hemoglobin 27.5 pg (27-33); Mean Corpuscular Volume 87.1 fl (85-98); Mean Platelet Volume 9.9 fL (7.4-10.4); Monocytes # 0.4 10^3/uL (0.2-0.9); Monocytes % 5.4 %; Neutrophils # 5.97 10^3/uL (1.8-7.7); Neutrophils % 74.6 %; Nucleated Red Blood Cells % 0 %; Platelet Count 255 10^3/cmm (157-399); Red Blood Count 4.66 10^6/uL (3.85-5.65); White Blood Count 7.99 10^3/uL (3.29-11.43)
[2023-06-30 04:46] LABS: Anion Gap 19.4 (5-19); Blood Urea Nitrogen 19 mg/dL (8-23); C Reactive Protein 92.6 mg/L (0.0-4.9); Calcium 8.4 mg/dL (8.5-10.5); Carbon Dioxide 25 mmol/L (22-29); Chloride 97 mmol/L (98-107); Creatinine Clr Calc Pharmacy 63.4886; Glucose 260 mg/dL (65-115); Magnesium 2.3 mg/dL (1.7-2.3); Osmolality Calculated 295 mOsm/kg (285-295); Potassium 4.4 mmol/L (3.5-5.1); Sodium 137 mmol/L (136-145)
[2023-06-30] MEDS: methylPREDNISolone sod succ 40 mg/mL INJ IVP (05:44)
[2023-06-30] MEDS: lisinopril 20 mg Tablet PO (05:44)
[2023-06-30] MEDS: FUROsemide 20 mg Tablet PO (05:44)
[2023-06-30] MEDS: levothyroxine 75 mcg Tablet PO (05:44)
[2023-06-30 08:15] LABS: Glucose Point of Care 276 mg/dL (70-110)
[2023-06-30] MEDS: sennosides-docusate Tablet 1 TAB PO (08:30)
[2023-06-30] MEDS: insulin lispro 100 unit/1 mL SUBCUT ×3 (08:30→17:17)
[2023-06-30] MEDS: gabapentin 300 mg Capsule 600 MG PO ×2 (08:31→17:15)
[2023-06-30] MEDS: aspirin 81 mg EC Tablet PO (08:31)
[2023-06-30] MEDS: oseltamivir phosphate 75 mg Capsule PO ×2 (08:31→17:16)
[2023-06-30] MEDS: azithromycin 250 mg Tablet 500 MG PO (08:31)
[2023-06-30] MEDS: cefTRIAXone 1,000 MG in sodium chloride 0.9% (plus) 50 ML 100 MG IV (08:31)
--- NOTE | 2023-06-30 10:58 | PM.PN ---
Subjective Subjective: Currently on heated high flow I have asked RT to see if we can transition her to regular nasal cannula No fever today Blood pressure stable Able to get up and sit at the bedside and eat breakfast No active chest pain or shortness of breath Echo reviewed with the patient which is showing preserved action fraction, CTA did not show PE Vitals/I&O/Wt Last Vital Signs Temp 98.5 F 06/30/23 04:00 Pulse 76 06/30/23 10:14 Resp 20 H 06/30/23 10:14 BP 126/60 06/30/23 06:20 Pulse Ox 94 06/30/23 10:14 O2 Del Method Heated High Flow 06/30/23 09:11 O2 Flow Rate 6 06/30/23 10:14 FiO2 43 06/30/23 09:11 06/29/23 06/30/23 06/30/23 22:59 06:59 14:59 Intake Total 150 / 250 400 / 400 Output Total 400 / 400 800 / 800 Balance -400 / -300 150 / -150 -400 / -400 Weight last 48 hrs Weight 99 kg Weight 99 kg Physical Exam Narrative: Patient is awake and alert GCS 15 Currently on heated high flow 40 L 53% Nonfocal neuroexam No active crackles GCS 15 S1, S2 hemodynamically stable Data 06/30/23 04:05 06/30/23 04:05 Micro: Microbiology 06/29/23 13:27 Blood Culture - Preliminary Blood SPECIMEN COLLECTED 06/29/23 13:20 Blood Culture - Preliminary Blood SPECIMEN COLLECTED A&P Assessment and plan (1) Hypotension: Qualifiers: Hypotension type: unspecified hypotension type Qualified Code(s): I95.9 - Hypotension, unspecified (2) Hypothyroidism: (3) Influenza A: (4) Sepsis: (5) Intracranial aneurysm: (6) Encephalopathy: (7) Hypoxia: Plan Sepsis: Resolved Hemodynamically stable Echo unremarkable patient is euvolemic, BNP is 596, I would not repeat the dose of Lasix CTA rule out PE Significant acute hypoxia transition heated high flow to nasal cannula Patient has diabetes hemoglobin A1c 7.5 Hyperglycemia we will add low-dose Lantus along sliding scale Lactic acid 1.9 Patient likely will go home over the weekend after home O2 eval Attestations Medical Necessity Statement*: Can be transferred out of ICU to [facility] [place] Diagnoses Hypotension I95.9 Hypotension type: unspecified hypotension type Hypothyroidism E03.9 Influenza A J10.1 Sepsis A41.9 Intracranial aneurysm I67.1 Encephalopathy G93.40 Hypoxia R09.02
[2023-06-30 11:52] LABS: Glucose Point of Care 268 mg/dL (70-110)
[2023-06-30 17:05] LABS: Glucose Point of Care 265 mg/dL (70-110)
[2023-06-30 21:11] LABS: Glucose Point of Care 298 mg/dL (70-110)
[2023-06-30] MEDS: insulin glargine 100 units/1 mL 5 UNIT SUBCUT (22:14)
[2023-07-01] VITALS (8 sets, daily range): BP systolic 111–154; BP diastolic 66–69; PULSE 63–80; RESP 16–17; TEMP 36.3–36.9; O2SAT 91–97
[2023-07-01 05:27] LABS: Basophils % 0.2 %; Eosinophils % 0.2 %; Hematocrit 41.1 % (36-47); Lymphocytes # 3.7 10^3/uL (0.8-4.8); Lymphocytes % 29.1 %; Mean Corpuscular HGB Conc 31.6 g/dL (30-55); Mean Corpuscular Hemoglobin 27.3 pg (27-33); Mean Corpuscular Volume 86.3 fl (85-98); Mean Platelet Volume 9.7 fL (7.4-10.4); Monocytes # 1.1 10^3/uL (0.2-0.9); Monocytes % 8.4 %; Neutrophils # 7.95 10^3/uL (1.8-7.7); Neutrophils % 61.6 %; Nucleated Red Blood Cells % 0 %; Platelet Count 311 10^3/cmm (157-399); Red Blood Count 4.76 10^6/uL (3.85-5.65); Red Cell Distribution Width 13.6 % (12.1-15.1); White Blood Count 12.87 10^3/uL (3.29-11.43)
[2023-07-01] MEDS: FUROsemide 20 mg Tablet PO (05:45)
[2023-07-01] MEDS: levothyroxine 75 mcg Tablet PO (05:45)
[2023-07-01] MEDS: lisinopril 20 mg Tablet PO (05:45)
[2023-07-01 05:49] LABS: Anion Gap 18.2 (5-19); Blood Urea Nitrogen 33 mg/dL (8-23); Calcium 8.3 mg/dL (8.5-10.5); Carbon Dioxide 25 mmol/L (22-29); Chloride 98 mmol/L (98-107); Creatinine Clr Calc Pharmacy 57.3194; Glucose 212 mg/dL (65-115); Osmolality Calculated 298 mOsm/kg (285-295); Potassium 4.2 mmol/L (3.5-5.1); Sodium 137 mmol/L (136-145)
[2023-07-01 06:48] LABS: Glucose Point of Care 240 mg/dL (70-110)
--- NOTE | 2023-07-01 08:29 | P.DS_ITS ---
Discharge Providers Date of Admission: 06/29/23 15:02 Date of Discharge: July 01, 2023 Attending Provider at Admission: Steph Berry MD Attending Provider at Discharge: Steph Berry MD Primary Care Provider: Larisa Culp MD Diagnoses at Discharge Discharge Diagnosis (1) Hypotension: Status: Acute Qualifiers: Hypotension type: unspecified hypotension type Qualified Code(s): I95.9 - Hypotension, unspecified (2) Hypothyroidism: Status: Acute (3) Influenza A: Status: Acute (4) Sepsis: Status: Acute (5) Intracranial aneurysm: Status: Acute (6) Encephalopathy: Status: Acute (7) Hypoxia: Status: Acute Reason for Visit Reason for Visit: Stroke Alert Hospital Course Hospital Course 73-year female who present to the hospital after recurrent fall at home, she was diagnosed with influenza A, CTA chest rule out PE, echo showed preserved ejection fraction, she remained hemodynamically stable she was diagnosed sepsis secondary to postviral bacterial pneumonia she was kept on ceftriaxone azithromycin, her fever subsided with use of anti-inflammatory medications and antibiotics, sepsis resolved. She has history of type 2 diabetes for which she is taking p.o. antihyperglycemic agents she will resume those at home I will give her Augmentin at the time of discharge after home oxygen evaluation. She does not use oxygen during hospitalization she was on 2 to 3 L. Remained chest pain-free. She is not showing any signs of neurological deficits, code stroke was called on admission which was ruled out CT head unremarkable. I discussed her CT head and neck findings with Dr. Chow who recommended outpatient follow-up within 6 months, no acute intervention recommended by Dr. Chow at this point, patient takes lisinopril 20 mg for her blood pressure however her blood pressure has been ranging between 1 20-150 50s systolic mmhg, I will add amlodipine 10 mg. She is already on aspirin and atorvastatin. Physical Exam Narrative: Awake and alert Able to walk GCS 15 NIH 0 S1, S2 Currently on 3 L Hemodynamic stable Discharge Data Studies Completed and Pending Completed Studies During Hospitalization Category Date Time Status CT angio chest PE protcl [id number] Stat Cat Scan 06/29/23 13:[address] head thrombolytic [id number] Stat Cat Scan 06/29/23 10:55 Completed CTA head neck [CT angio headneck* [id number]] Stat Cat Scan 06/29/23 11:06 Completed XR chest 1V portable [id number] Stat Exams 06/29/23 11:07 Completed CV. echo complete* [id number] Routine Ultrasound 06/29/23 17:09 Completed Pending at discharge Category Date Time Status Blood Culture Stat Lab 06/29/23 13:27 Results Sputum Culture and Gram Stain Stat Lab 06/29/23 17:09 Uncollected Laboratory Results WBC 12.87 10^3/uL (3.29-11.43) H 07/01/23 05:19 RBC 4.76 10^6/uL (3.85-5.65) 07/01/23 05:19 Hgb 13.00 g/dL (11.27-16.99) 07/01/23 05:19 Hct 41.1 % (36-47) 07/01/23 05:19 MCV 86.3 fl (85-98) 07/01/23 05:19 MCH 27.3 pg (27-33) 07/01/23 05:19 MCHC 31.6 g/dL (30-55) 07/01/23 05:19 RDW 13.6 % (12.1-15.1) 07/01/23 05:19 Plt Count 311 10^3/cmm (157-399) 07/01/23 05:19 MPV 9.7 fL (7.4-10.4) 07/01/23 05:19 Neut % (Auto) 61.6 % 07/01/23 05:19 Lymph % (Auto) 29.1 % 07/01/23 05:19 Stewart % (Auto) 8.4 % 07/01/23 05:19 Eos % (Auto) 0.2 % 07/01/23 05:19 Baso % (Auto) 0.2 % 07/01/23 05:19 Neut # (Auto) 7.95 10^3/uL (1.8-7.7) H 07/01/23 05:19 Lymph # (Auto) 3.7 10^3/uL (0.8-4.8) 07/01/23 05:19 Stewart # (Auto) 1.1 10^3/uL (0.2-0.9) H 07/01/23 05:19 Eos # (Auto) 0.0 10^3/uL (0.0-0.8) 07/01/23 05:19 Baso # (Auto) 0.0 10^3/uL (0.0-0.1) 07/01/23 05:19 Nucleated RBC % (auto) 0 % 07/01/23 05:19 Nucleated RBCs # 0.0 /100WBC 07/01/23 05:19 PT 13.90 SECONDS (12.1-14.9) 06/29/23 11:03 INR 1.03 (0.8-1.2) 06/29/23 11:03 APTT 30.8 SECONDS (23.9-36.7) 06/29/23 11:03 Specimen Type Arterial 06/29/23 11:11 Sample Site Brachial, right 06/29/23 11:11 ABG pH 7.43 (7.35-7.45) 06/29/23 11:11 ABG pCO2 41.2 mmHg (35-45) 06/29/23 11:11 ABG pO2 52.9 mmHg (80.0-100.0) L 06/29/23 11:11 ABG PO2/FiO2 Ratio 0 06/29/23 11:11 ABG HCO3 27.4 mmol/L (22-26) H 06/29/23 11:11 ABG O2 Saturation 89.3 06/29/23 11:11 ABG Base Excess 2.8 mmol/L (-2.0-2.0) H 06/29/23 11:11 Gallo Test N/a 06/29/23 11:11 A-a O2 Gradient 23.5 mmHg (5-10) H 06/29/23 11:11 Hematocrit 40.1 % (37-47) 06/29/23 11:11 Hgb O2 Saturation 87.2 % (95-100) L 06/29/23 11:11 Carboxyhemoglobin 1.8 %THgb (0.4-20.1) 06/29/23 11:11 Methemoglobin 0.6 % (0.4-1.5) 06/29/23 11:11 Total Hemoglobin 13.1 g/dL (12-16) 06/29/23 11:11 Sodium 140.0 mmol/L (131-143) 06/29/23 11:11 Potassium 4.1 mmol/L (3.5-5.0) 06/29/23 11:11 Glucose 168.0 mg/dL (70-115) H 06/29/23 11:11 Ionized Calcium 1.2 mmol/L (1.1-1.4) 06/29/23 11:11 O2 Delivery Device Nc 06/29/23 11:11 O2 Liters/Min 5.0 % 06/29/23 11:11 FiO2 40.0 % 06/29/23 11:11 Animal Cruelty Investigator ID glc 06/29/23 11:11 Sodium 137 mmol/L (136-145) 07/01/23 05:19 Potassium 4.2 mmol/L (3.5-5.1) 07/01/23 05:19 Chloride 98 mmol/L (98-107) 07/01/23 05:19 Carbon Dioxide 25 mmol/L (22-29) 07/01/23 05:19 Anion Gap 18.2 (5-19) 07/01/23 05:19 BUN 33 mg/dL (8-23) H 07/01/23 05:19 Creatinine 1.1 mg/dL (0.5-0.9) H 07/01/23 05:19 GFR Calculation Not Reportable 07/01/23 05:19 Glucose 212 mg/dL (65-115) H 07/01/23 05:19 POC Glucose 240 mg/dL (70-110) H 07/01/23 06:37 Estimat Average Glucose 169 06/29/23 11:03 Hemoglobin A1c 7.5 % (4.0-6.0) H 06/29/23 11:03 Calculated Osmolality 298 mOsm/kg (285-295) H 07/01/23 05:19 Lactic Acid 1.9 mmol/L (0.5-2.2) 06/29/23 11:03 Calcium 8.3 mg/dL (8.5-10.5) L 07/01/23 05:19 Magnesium 2.3 mg/dL (1.7-2.3) 06/30/23 04:05 Total Bilirubin 0.5 mg/dL (0.15-1.2) 06/29/23 11:03 AST 19 U/L (0-32) 06/29/23 11:03 ALT 14 U/L (0-33) 06/29/23 11:03 Alkaline Phosphatase 109 U/L (35-105) H 06/29/23 11:03 Troponin T Baseline 24 ng/L (0-10) H 06/29/23 11:03 Troponin T 120 Minute 27.18 ng/L (0-10) H 06/29/23 13:20 Delta Troponin T 3.18 ABS# (0-10) 06/29/23 13:20 Troponin T Hi Sens 6Hr 28.22 ng/L (0-10) H 06/29/23 17:08 Troponin T Hi Sens 6Hr Delta 4.22 ng/L (0-12) 06/29/23 17:08 C-Reactive Protein 92.6 mg/L (0.0-4.9) H 06/30/23 04:05 NT-Pro-B Natriuret Pep 596 pg/mL (0-125) H 06/29/23 11:03 Total Protein 6.6 g/dL (6.6-8.7) 06/29/23 11:03 Albumin 3.9 g/dL (3.5-5.2) 06/29/23 11:03 Globulin 2.7 g/dL (1.3-4.6) 06/29/23 11:03 Procalcitonin 0.16 ng/mL (0-0.5) 06/29/23 13:20 TSH 1.13 uIU/mL (0.27-4.20) 06/29/23 13:20 Urine Color Yellow (Yellow) 06/29/23 12:14 Urine Appearance Clear (CLEAR) 06/29/23 12:14 Urine pH 8 (5-7) H 06/29/23 12:14 Ur Specific [place] 1.005 (1.005-1.030) 06/29/23 12:14 Urine Protein Neg (Negative) 06/29/23 12:14 Urine Glucose (UA) 4+ (Normal) H 06/29/23 12:14 Urine Ketones Negative (Negative) 06/29/23 12:14 Urine Blood 2+ (Negative) H 06/29/23 12:14 Urine Nitrate Negative (Negative) 06/29/23 12:14 Urine Bilirubin Neg (Negative) 06/29/23 12:14 Prot Sulfosalicylic Acd Positive (Negative) 06/29/23 12:14 Urine Urobilinogen Norm mg/dL (Negative) 06/29/23 12:14 Ur Leukocyte Esterase 1+ (Negative) H 06/29/23 12:14 Urine RBC 0-4 /hpf (0-2) H 06/29/23 12:14 Urine WBC 0-4 /hpf (0-5) H 06/29/23 12:14 Ur Squamous Epith Cells 0-4 /hpf (0-5) H 06/29/23 12:14 Amorphous Sediment Not Reportable 06/29/23 12:14 Urine Bacteria Trace /hpf (NONE) 06/29/23 12:14 Urine Mucus None /hpf 06/29/23 12:14 Urine Opiates Screen Negative ng/mL (Negative) 06/29/23 12:14 Ur Barbiturates Screen Negative ng/mL (Negative) 06/29/23 12:14 Ur Phencyclidine Scrn Negative ng/mL (Negative) 06/29/23 12:14 Ur Amphetamines Screen Negative ng/mL (Negative) 06/29/23 12:14 U Benzodiazepines Scrn Negative ng/mL (Negative) 06/29/23 12:14 Urine Cocaine Screen Negative ng/mL (Negative) 06/29/23 12:14 U Marijuana (THC) Screen Negative ng/mL (Negative) 06/29/23 12:14 Adenovirus (PCR) Not detected (NOT DETECT) 06/29/23 11:30 C. pneumoniae DNA (PCR) Not detected (NOT DETECT) 06/29/23 11:30 Coronavirus 229E (PCR) Not detected (NOT DETECT) 06/29/23 11:30 Human Metapneumovir PCR Not detected (NOT DETECT) 06/29/23 11:30 Influenza A (H1) PCR Not detected (NOT DETECT) 06/29/23 11:30 Influ A (H1/09) PCR Detected (NOT DETECT) A 06/29/23 11:30 Influenza A (H3) PCR Not detected (NOT DETECT) 06/29/23 11:30 Influenza Type A (PCR) Detected (NOT DETECT) A 06/29/23 11:30 Influenza Type B (PCR) Not detected (NOT DETECT) 06/29/23 11:30 M. pneumoniae (PCR) Not detected (NOT DETECT) 06/29/23 11:30 Parainfluenza 1 (PCR) Not detected (NOT DETECT) 06/29/23 11:30 Parainfluenza 2 (PCR) Not detected (NOT DETECT) 06/29/23 11:30 Parainfluenza 3 (PCR) Not detected (NOT DETECT) 06/29/23 11:30 Parainfluenza 4 (PCR) Not detected (NOT DETECT) 06/29/23 11:30 RSV Type A (PCR) Not detected (NOT DETECT) 06/29/23 11:30 RSV Type B (PCR) Not detected (NOT DETECT) 06/29/23 11:30 Entero/Rhino (PCR) Not detected (NOT DETECT) 06/29/23 11:30 SARS-CoV-2 (PCR) Not detected (NOT DETECT) 06/29/23 11:30 Vitals Last Vital Signs Temp 97.4 F L 07/01/23 07:19 Pulse 67 07/01/23 07:19 Resp 17 07/01/23 07:19 BP 154/66 07/01/23 07:19 Pulse Ox 97 07/01/23 07:19 O2 Del Method Room Air 07/01/23 07:19 O2 Flow Rate 2 06/30/23 19:41 FiO2 50 06/30/23 10:00 Discharge Plan Discharge Patient Disposition: Home Condition: Stable Prescriptions: New amlodipine 10 mg tablet 10 mg PO DAILY Qty: 90 2RF amoxicillin-pot clavulanate 875-125 mg tablet 1 tab PO BID Qty: 10 0RF Continued atorvastatin 20 mg tablet 20 mg PO QAM metformin 1,000 mg tablet 1,000 mg PO BID glimepiride 4 mg tablet 4 mg PO BID diclofenac sodium 1 % gel 1 g TOPICAL QID PRN (Reason: Pain) aspirin 81 mg Tablet,Chewable 81 mg PO QAM Jardiance 25 mg tablet 25 mg PO QAM gabapentin 300 mg capsule 600 mg PO BID Qty: 0 0RF levothyroxine 75 mcg tablet 75 mcg PO QAM lisinopril 20 mg tablet 20 mg PO QAM betamethasone dipropionate 0.05 % cream See Rx Instructions .ROUTE .COMPLEX Rx Instructions: 1 applic topically ;MIX WITH EQUAL PARTS OF CLOTRIMAZOLE CREAM AND APPLY TWICE DAILY TO SKIN RASH DIRECTED furosemide 20 mg tablet 20 mg PO QAM clotrimazole 1 % cream See Rx Instructions .ROUTE .COMPLEX Rx Instructions: MIX EQUAL PARTS WITH BETAMETHASONE CREAM AND APPLY TO RASH TWICE DAILY DIRECTED Ashutoshsus 14 mg tablet 14 mg PO QAM Discharge Orders: Discharge Order (Routine); Ordered 07/01/23 Ordered By: Steph Berry Referrals: Larisa Culp MD [Primary Care Provider] - 7-10 days Usman Woods MD [Physician] - 3 months (A1 segment aneurysm 5 x 5 millimeters) Discharge Diet: Diabetic Discharge Activity: Increase activity as tolerated Patient Instructions: Altered Mental Status (ED), Opioid Safety Activity Restrictions/Additional Instructions: I discussed your case with neurology you have an aneurysm A1 segment 5 x 5 mm which is very small aneurysm Follow-up as needed within 3 months with neurology You can start taking amlodipine along lisinopril to keep your blood pressure below 130/90 mmHg You do not have to take 2 blood pressure medications if your blood pressure is already staying below 130/90 on lisinopril. I am giving you Augmentin for 5 days. You may wear a mask for next 2 to 3 days Discharge Attestations Time Spent in Discharge Care*: greater than 30 min Status at Discharge: Cognitive status at discharge: mildly impaired cognition , Behavioral status at discharge: cooperative , Quality Metrics Clinical Quality Measures [ No reported AMI, CVA or VTE this stay] Coding Level of Care Code Acute Code for Chg Fwd Diagnoses Hypotension I95.9 Hypotension type: unspecified hypotension type Hypothyroidism E03.9 Influenza A J10.1 Sepsis A41.9 Intracranial aneurysm I67.1 Encephalopathy G93.40 Hypoxia R09.02
[2023-07-01] MEDS: oseltamivir phosphate 75 mg Capsule PO (10:07)
[2023-07-01] MEDS: azithromycin 250 mg Tablet 500 MG PO (10:07)
[2023-07-01] MEDS: cefTRIAXone 1,000 MG in sodium chloride 0.9% (plus) 50 ML 100 MG IV (10:07)
[2023-07-01] MEDS: aspirin 81 mg EC Tablet PO (10:07)
[2023-07-01] MEDS: gabapentin 300 mg Capsule 600 MG PO (10:07)
[2023-07-01] MEDS: sennosides-docusate Tablet 1 TAB PO (10:08)
[2023-07-01] MEDS: insulin lispro 100 unit/1 mL SUBCUT (10:08)
[2023-07-01 11:25] LABS: Glucose Point of Care 235 mg/dL (70-110)
== END 2023-07-01 12:35 | disposition home or self-care (01) | DRG 871 ==
LOC: ER 11:05 → ER IP 15:03 → ICU 18:16 → MEDSURG 06-30 15:29
PROVIDERS: Admitting Provider Internal Medicine; Emergency Provider Family Medicine; PCP Internal Medicine; Visit Provider Internal Medicine
DX: A41.9 Sepsis, unspecified organism (principal); G93.41 Metabolic encephalopathy; J10.08 Influenza due to other identified influenza virus with other specified pneumonia; J15.9 Unspecified bacterial pneumonia; R65.20 Severe sepsis without septic shock; E03.9 Hypothyroidism, unspecified; M10.9 Gout, unspecified; E11.9 Type 2 diabetes mellitus without complications; Z86.16 Personal history of COVID-19; Z87.01 Personal history of pneumonia (recurrent); R09.02 Hypoxemia; I67.1 Cerebral aneurysm, nonruptured
CPT/HCPCS: 36415; 36416; 36600; 70450; 70496; 70498; 71045; 71275; 80048; 80051; 80053; 80306; 81001; 82330; 82805; 82962; 83036; 83605; 83735; 83880; 84145; 84443; 84484; 85025; 85610; 85730; 86140; 87040; 87486; 87581; 87633; 93005; 93306; 94760; 96372; 96374; 96375; 97110; 97161; 99285; J0131; J0696; J1815; J1940; J2920; Q0144; Q9967

== ENCOUNTER 2024-02-17 14:25 | Outpatient (CLI) | payer MEDICARE, MEDICAID, SELFPAY ==
--- NOTE | 2024-02-17 14:35 | CTR_ITS ---
PROCEDURE INFORMATION: Exam: CTA Head With Contrast, Arteriography Exam date and time: 02/17/2024 3:27 PM Age: 74 years old Clinical indication: Condition or disease; Aneurysm, cerebral TECHNIQUE: Imaging protocol: Computed tomographic angiography of the head with contrast. Exam focused on the arteries. 3D rendering (Not supervised by radiologist): MIP and/or 3D reconstructed images were created by the technologist. Radiation optimization: All CT scans at this facility use at least one of these dose optimization techniques: automated exposure control; mA and/or kV adjustment per patient size (includes targeted exams where dose is matched to clinical indication); or iterative reconstruction. Contrast material: OMNI 350; Contrast volume: 100 ml; Contrast route: INTRAVENOUS (IV); COMPARISON: CT angio headneck* [id number] 06/29/2023 11:46 AM RADIATION DOSE METRICS: Total DLP (mGy-cm): 1319.77 FINDINGS: ANTERIOR CIRCULATION: Right internal carotid artery: Intracranial segment is patent with no significant stenosis. No aneurysm. Right middle cerebral artery: No occlusion or significant stenosis. No aneurysm. Right anterior cerebral artery: No occlusion or significant stenosis. No aneurysm. Left internal carotid artery: Intracranial segment is patent with no significant stenosis. No aneurysm. Left middle cerebral artery: No occlusion or significant stenosis. No aneurysm. Left anterior cerebral artery: No occlusion or significant stenosis. Similar size and appearance of a 6 mm saccular aneurysm originating off the proximal A1 segment. POSTERIOR CIRCULATION: Right vertebral artery: No occlusion or significant stenosis. No aneurysm. Left vertebral artery: No occlusion or significant stenosis. No aneurysm. Basilar artery: No occlusion or significant stenosis. No aneurysm. Right posterior cerebral artery: No occlusion or significant stenosis. No aneurysm. Left posterior cerebral artery: No occlusion or significant stenosis. No aneurysm. Brain: No hemorrhage. No edema. Moderate diffuse cerebral atrophy and mild sequela chronic small vessel disease. No mass effect. Cerebral ventricles: No ventriculomegaly. Bones/joints: Unremarkable. No acute fracture. Soft tissues: Unremarkable. PROCEDURE INFORMATION: Exam: CTA Neck With Contrast Exam date and time: 02/17/2024 3:27 PM Age: 74 years old Clinical indication: Condition or disease; Aneurysm, cerebral TECHNIQUE: Imaging protocol: Computed tomographic angiography of the neck with contrast. Exam focused on the cervical segments of the vasculature. 3D rendering (Not supervised by radiologist): MIP and/or 3D reconstructed images were created by the technologist. Radiation optimization: All CT scans at this facility use at least one of these dose optimization techniques: automated exposure control; mA and/or kV adjustment per patient size (includes targeted exams where dose is matched to clinical indication); or iterative reconstruction. Contrast material: OMNI 350; Contrast volume: 100 ml; Contrast route: INTRAVENOUS (IV); COMPARISON: CT angio headneck* [id number] 06/29/2023 11:46 AM RADIATION DOSE METRICS: Total DLP (mGy-cm): 1319.77 FINDINGS: Right common carotid artery: No stenosis. No dissection or occlusion. Right internal carotid artery: No stenosis of the extracranial segment. No dissection or occlusion. Right external carotid artery: No occlusion or stenosis of the origin. Left common carotid artery: No stenosis. No dissection or occlusion. Left internal carotid artery: No stenosis of the extracranial segment. No dissection or occlusion. Left external carotid artery: No occlusion or stenosis of the origin. Right vertebral artery: No stenosis. No dissection or occlusion. Left vertebral artery: No stenosis. No dissection or occlusion. Soft tissues: Normal. No significant soft tissue swelling. Bones/joints: [facility] acute fracture[facility] [id number] IMPRESSION: 1. No acute intracranial findings. 2. Similar appearance of a 6 mm saccular aneurysm originating off the proximal A1 segment of the left anterior cerebral artery. IMPRESSION: No stenosis or occlusion. REFERENCES: NASCET CRITERIA. The degree of stenosis in the cervical segment of the internal carotid artery is based on NASCET criteria. Normal is no stenosis. Mild is less than 50% stenosis. Moderate is 50-69% stenosis. Severe is 70% to 99% stenosis. Total occlusion is no detectable patent lumen.
[2024-02-17] MEDS: iohexol 350 mg/mL 500 mL Btl (per mL) IV (15:46)
[2024-02-17 15:50] LABS: Blood Urea Nitrogen 24 mg/dL (8-23)
== END 2024-02-17 14:26 | disposition home or self-care (01) ==
LOC: RAD 14:26
PROVIDERS: PCP Internal Medicine; Visit Provider Internal Medicine
DX: I67.1 Cerebral aneurysm, nonruptured (principal)
CPT/HCPCS: 70496; 70498; 82565; 84520

== ENCOUNTER 2024-06-26 10:50 | Outpatient (CLI) | payer MEDICARE, MEDICAID, SELFPAY ==
[2024-06-26 11:44] LABS: Basophils # 0.1 10^3/uL (0.0-0.1); Basophils % 0.8 %; Eosinophils # 0.6 10^3/uL (0.0-0.8); Eosinophils % 4.3 %; Hematocrit 41.9 % (36-47); Lymphocytes % 35.4 %; Mean Corpuscular Hemoglobin 27.7 pg (27-33); Mean Corpuscular Volume 89.3 fl (85-98); Monocytes % 6.9 %; Neutrophils # 7.25 10^3/uL (1.8-7.7); Neutrophils % 51.9 %; Nucleated Red Blood Cells % 0 %; Platelet Count 333 10^3/cmm (157-399); Red Blood Count 4.69 10^6/uL (3.85-5.65); Red Cell Distribution Width 13.5 % (12.1-15.1); White Blood Count 13.98 10^3/uL (3.29-11.43)
[2024-06-26 11:56] LABS: Alanine Aminotransferase 14 U/L (0-33); Albumin Level 4.1 g/dL (3.5-5.2); Alkaline Phosphatase 114 U/L (35-105); Anion Gap 19.4 (5-19); Aspartate Amino Transferase 16 U/L (0-32); Blood Urea Nitrogen 24 mg/dL (8-23); C Reactive Protein 7.9 mg/L (0.0-4.9); Calcium 9.3 mg/dL (8.5-10.5); Carbon Dioxide 25 mmol/L (22-29); Chloride 99 mmol/L (98-107); Erythrocyte Sedimentation Rate 42 mm/hr (0-15); Globulin 3.3 g/dL (1.3-4.6); Glucose 135 mg/dL (65-115); Osmolality Calculated 294 mOsm/kg (285-295); Potassium 4.4 mmol/L (3.5-5.1); Sodium 139 mmol/L (136-145); Total Bilirubin 0.4 mg/dL (0.15-1.2); Total Protein 7.4 g/dL (6.6-8.7)
== END 2024-06-26 10:51 | disposition home or self-care (01) ==
LOC: LAB 11:19
PROVIDERS: PCP Internal Medicine; Visit Provider Internal Medicine
DX: E11.65 Type 2 diabetes mellitus with hyperglycemia (principal); I10 Essential (primary) hypertension; R53.83 Other fatigue
CPT/HCPCS: 80053; 85025; 85651; 86140

== ENCOUNTER 2025-04-16 11:39 | Outpatient (CLI) | payer MEDICARE, MEDICAID, SELFPAY ==
--- NOTE | 2025-04-16 12:00 | MM_ITS ---
WS: [id number] BILATERAL 3D TOMOSYNTHESIS DIGITAL SCREENING MAMMOGRAPHY WITH CAD CLINICAL INFORMATION: SCREENING HISTORY: Screening mammogram. No current complaints. COMPARISON: 2020 TECHNIQUE: Bilateral CC and MLO views. FINDINGS: Scattered fibroglandular densities bilaterally. No suspicious focal mass, asymmetry, calcifications, or architectural distortion. No evidence of malignancy. Vascular and secretory calcifications. Coarse calcification LEFT breast. A few incidental intramammary lymph nodes RIGHT breast similar to previous MM/MM scr tomosynthesis [id number] IMPRESSION: DENSITY: There are scattered areas of fibroglandular density. BI-RADS: 2 - Benign. FOLLOW UP: 1 Year Follow-up Recommend return to annual screening mammography.
== END 2025-04-16 11:40 | disposition home or self-care (01) ==
LOC: MOBLMAM 11:41
PROVIDERS: PCP Internal Medicine; Visit Provider Internal Medicine
DX: Z12.31 Encounter for screening mammogram for malignant neoplasm of breast (principal); R92.1 Mammographic calcification found on diagnostic imaging of breast; R59.0 Localized enlarged lymph nodes
CPT/HCPCS: 77063; 77067